=== PATIENT | male | born 1935 | race Caucasian/White ===

== ENCOUNTER → 2016-11-14 | Outpatient (CLI) | payer MEDICARE ==
[~2016-11-14] MED LIST: AMARYL 2MG TABLE2 MG PO; ASPIRIN325 M1 PO; CELEBREX 200MG200 MG PO; COLCHICINE0.6 MG PO; COREG25 MG PO; COUMADIN4 MG PO; COUMADIN6 MG PO; DILAUDID2 MG PO; IMDUR 60MG. TAB60 MG PO; INSULIN GL100 UNITS/ SC; LANOXIN0.125 MG PO; LASIX40 MG PO; LIPITOR20 M1 PO; LOPID 600MG TA600 MG PO; LORTAB 5/500 501 TAB PO; MICARDIS HCT 121 TAB PO; NEURONTIN 300M300 MG PO; NOVOLOG MIX 70/10 M1 SC; NOVOLOG MIX 70/33 ML SC; OMEPRAZOLE20 MG PO; STERAPRED DS10 MG PO
[2016-11-14 17:21] LABS: BUN 34 mg/dL (7-18)
[2016-11-14 17:22] LABS: GFR (ESTIMATED) 49 ML/MIN (>60)
== END ==
LOC: LAB 16:17
PROVIDERS: Internal Medicine
DX: E11.42 Type 2 diabetes mellitus with diabetic polyneuropathy (principal); E11.59 Type 2 diabetes mellitus with other circulatory complications; I50.22 Chronic systolic (congestive) heart failure; I25.10 Atherosclerotic heart disease of native coronary artery without angina pectoris; I25.2 Old myocardial infarction; I48.0 Paroxysmal atrial fibrillation

== ENCOUNTER → 2016-12-02 | Outpatient (CLI) | payer MEDICARE | LOC: LAB 16:22 | DX: I48.2 Chronic atrial fibrillation (principal); Z79.01 Long term (current) use of anticoagulants; Z51.81 Encounter for therapeutic drug level monitoring ==

== ENCOUNTER 2017-07-14 16:11 | Emergency (ER) | payer MEDICARE, MEDICAID ==
[~2017-07-14] VITALS: Ht 198.1 cm; Wt 90.7 kg
[2017-07-14 16:44] LABS: HEMOGLOBIN 11.2 g/dL (14.1-18.0); LYMPH # 1.5 K/mm3 (0.7-4.5); LYMPH % 27.9 % (10-50)
--- NOTE | 2017-07-14 16:46 | Emergency Room Report ---
History of Present Illness Time Seen by MD Broussard Presenting Problem in Triage Pt arrived:Walked Presenting Problem:PT SENT BY DR PRE[facility] FOR EVAL TO RULE OUT BLOOD CLOTS IN LEG. 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 N Clinical Suspician of Infection? N Mental Status: 1 - Regular (Normal Baseline) Sepsis Risk:Low Sepsis Risk Have you (or family members/close friends) recently traveled outside the [place]? N If Yes, where/when: Have you had exposure to infectious disease within the past month? TB? Other? Specify: She states she fell and injured his leg 2 weeks ago. States he is started on antibiotics on Monday he takes every 8 hours he doesn't know an antibiotic it is. 8 she's had some bilateral lower extremity swelling and redness in his RIGHT leg he states the redness in his RIGHT leg is improved since she's been on the antibiotic. She has chronic shortness of breath no new shortness of breath denies any chest pain denies any fevers or chills or nausea or vomiting. States he has a lot of pain and pressure in his knee when he tries to ambulate, this is gotten worse over the past day and that he is not able to bear weight on it due to pain in the knee. He states he has had a knot on his anterior knee just beneath the knee For about a year and a half but the whole knee is swollen more now. ALLERGIES Coded Allergies: No Known Drug Allergies (NKDA) (07/14/17) Uncoded Allergies: INGREDIENT: NO KNOWN - NO KNOWN DRUG ALLERGY (03/01/10) Home Medications Active Scripts Colchicine (Colchicine 0.6MG) 0.6 MG PO BID #10 TAB Prov: 10/28/12 Acetaminophen W/ Hydrocodone (Lortab 5/500) 1 TAB PO Q6HP PRN BREAKTHROUGH MOD TO SEV PAIN #10 TAB Prov: 10/15/13 Omeprazole (Omeprazole 20MG) 20 MG PO DAILY #30 CAP Prov: 10/15/13 Reported Medications Aspirin 325 MG PO DAILY Gemfibrozil (Lopid 600MG Tablet (Generic)) 600 MG PO DAILY ISOSORBIDE MONONITRATE (Isosorbide Mononitrate ER) 120 MG PO DAILY Furosemide (Lasix) 40 MG PO BID Gabapentin (Neurontin 300MG) 300 MG PO TID Atorvastatin Calcium (Lipitor) 20 MG PO DAILY Carvedilol (Coreg 25MG) 25 MG PO DAILY DIGOXIN (Digox) 0.125 MG PO DAILY Warfarin Sodium (Coumadin) 6 MG PO MoTuWeThFrSa Warfarin Sodium (Coumadin) 4 MG PO SUN INSULIN GLARGINE (Lantus 3ML Solostar Pen) 40 UNITS SC DAILY Glimepiride (Amaryl 2MG Tablet) 4 MG PO DAILY INSULIN ASPART PROTAM & ASPART (Novolog Mix 70-30 Vial) 50 UNITS SC BID Celecoxib (Celebrex 200MG) 200 MG PO DAILY History Medical History General Angina: No CT: Yes Hypertension? Yes Hyperlipidemia? Yes CHF? No COPD? No Asthma? No Hernia? No CVA? No Seizures? No Diabetes? Yes Insulin Dependent: No Insulin Pump: No Home FSBS? Yes UTI? Yes Stones? Yes GB Disease: No Hepatitis? No Cataracts? No Glaucoma? No MRSA? No TB? No Cancer? No Immunization Hx Ped.Immunizations UTD Yes DT/Tetanus NOT SURE Flu LAST YEAR Pneumonia 1-4 YRS Surgical Hx Previous Surgery?Y R KNEE VASECTOMY KIDNEY STONE REMOVAL Family History Family Hx Diabetes Yes CAD No Hypertension Yes Hyperlipidemia No Cancer No TB No Social History Smoking Hx Smoker: Never Smoker Tobacco: No Are you/the child exposed to second-hand smoke: No Alcohol Alcohol: No Review of Systems All Other Systems Reviewed and Negative Physical Exam Vital Signs Vital Signs Date Time Temp Pulse Resp B/P Pulse O2 O2 Flow FiO2 Ox Delivery Rate 07/14 1621 98.3 82 18 98 General Appearance: Nontoxic Head: Normocephalic, without obvious abnormality, atraumatic. Eyes: conjunctiva/corneas clear ENT: Mucous membranes moist. Neck: No jugular venous distention. Cardiac: regular rate and rhythm Lungs: Clear to auscultation bilaterally Abdomen: Nontender, Nondistended, positive bowel sounds, no rebound : No CVA tenderness Extremities: + Bilateral lower extremity pitting edema. RIGHT lower extremity has erythema has an open sore on the anterior tib-fib area RIGHT knee has an effusion there is some pretibial bursitis as well there is no erythema or warmth of the joint. He was to be a large effusion in the RIGHT knee joint. There is no cellulitis over this area but the lower leg is erythematous with open Sores and wounds Musculoskeletal: No chest wall tenderness Skin: No rashes or lesions to exposed skin, except for RIGHT lower extremity has a cellulitic appearance, patient states is improving on his antibiotics. Neurologic: Alert. No gross focal deficits Psychiatric: Normal affect (Carol CANTOR, Moncho) General Appearance normal appearance Respiratory Status No: respiratory distress. Cardiovascular normal exam Neurologic alert Medical Decision Making LABS/Meds/Orders Pt receiving controlled substance in ED? No Comment 448pm patient getting US now in ER. US per staff is negative for DVT 515 call out to orthopedics for knee effusion, Dr Goodwin 543 have lindsey Goodwin, no ortho call today or tommorrow, lindsey hospitalist here, cannot take patient without orthopedic call, call out to RIGHT tib-fib x-ray per my read I don't note any fracture RIGHT knee film per my read I don't note any fracture Chest x-ray per my read on it scarring I don't note any acute infiltrate Results/Orders Laboratory Tests 07/14/17 1635: Lactic Acid 1.0 07/14/17 1635: Troponin I < 0.02, B-Natriuretic Peptide 215 H, PT 25.4 H, INR 2.33 H 07/14/17 1635: Sodium 140, Potassium 4.1, Chloride 104, Carbon Dioxide 32, BUN 36 H, Creatinine 1.6 H, Estimated Creat Clear 47 L, Estimated GFR (MDRD) 42, Glucose 153 H, Calcium 8.7, Total Bilirubin 0.6, AST 39 H, ALT 36, Alkaline Phosphatase 91, Total Protein 7.6, Albumin 3.5, Globulin 4.1 H, Albumin/ Globulin Ratio 0.9 L, APTT 32.2, WBC 5.4, RBC 3.56 L, Hgb 11.2 L, Hct 33.2 L , MCV 93.1, RDW 15.5, Plt Count 145, MPV 9.9, Gran % 60.6, Gran # 3.3, Lymphocytes % 27.9, Monocytes % 5.2, Eosinophils % 5.3, Basophils % 1.0, Lymphocytes # 1.5, Monocytes # 0.3, Eosinophils # 0.3, Basophils # 0.1, PUBS MCHC 33.9, MCH 31.5 H Current Medication Orders Sig/Rg Start time Last Medication Dose Route Stop Time Status Admin Sodium Chloride 10 ML PRN PRN 07/14 1630 AC IV 07/15 1628 Orders Procedure Date/time Status CULTURE, BLOOD 07/14 1647 Active TROPONIN I 07/14 1647 Complete PARTIAL THROMBOPLASTIN TIME 07/14 1647 Complete LACTIC ACID 07/14 1647 Complete BRAIN NATRIURETIC PEPTIDE 07/14 1647 Complete PROTHROMBIN TIME 07/14 1631 Complete IV SALINE LOCK 07/14 1630 Active CBC WITH AUTO DIFF 07/14 1630 Complete CHEM 12 PROFILE 07/14 1630 Complete PELVIS AP ONLY 07/14 1627 Active LOWER LEG-RT 07/14 162 Active KNEE-3 VIEWS-RT 07/14 162 Active CHEST-PORTABLE 07/14 162 Active VENOUS LOWER EXT [place] 07/14 162 Complete Departure Departure Time of Disposition 1755 Disposition DC/XFER from ER to [facility] Clinical Impression Primary Impression: Effusion, right knee Secondary Impressions: Cellulitis of right leg Leg hematoma Qualifiers: Encounter type: initial encounter Laterality: right Qualified Code: S80.11XA - Contusion of right lower leg, initial encounter Condition STABLE Referrals Chapito CANTOR,Hossein Campos (Family) ED Critical Care Critical Care No If Critical Care minutes are documented, the time involved in the performance of seperately reportable procedures was not counted toward critical care time documented. I directly delivered medical care to this critically ill and/or injured patient. Timely evaluation and treatment was necessary to address the significant organ system(s) dysfunction present in this patient. at 1757
--- NOTE | 2017-07-14 17:13 | CARDIOVASCULAR REPORT ---
"Venous Exam Indications: 729.5 Pain in limb. IMPRESSIONS 1. There is no evidence of significant Reflux. 2. No evidence of deep or superficial vein thrombosis involving the right lower extremity and left lower extremity History: Bilateral lower extremity pain. Swelling of the right lower extremity. Ulcers of the right leg. PMH: Deep vein thrombosis. Risk factors: Hypertension. Recent trauma. Renal disease. Patient had a fall x 2 weeks ago with bruising and ulceration to the right lower extremity. Medications: Warfarin (Coumadin), 4 mg daily. Complete lower extremity venous duplex evaluation. Doppler flow study including spectral analysis, color and limon scale imaging. Location: Emergency department. Patient status: Emergency department. CRITICAL FINDINGS - Reported to: [facility] - Read back and verified. - 07/14/17 - 17:00 - RLE negative for DVT or SVT Tables: Venous flow and imaging: + +-------+ + |Location |Overall|Flow properties | + +-------+ + |Right common femoral |Patent |Normal phasicity; spontaneous; | | | |normal augmentation; compressible| + +-------+ + |Right saphenofemoral junction|Patent |Compressible | + +-------+ + |Right profunda femoral |Patent |Compressible | + +-------+ + |Right femoral |Patent |Normal phasicity; spontaneous; | | | |normal augmentation; | | | |compressible; no reflux | + +-------+ + |Right greater saphenous |Patent |Normal phasicity; spontaneous; | | | |normal augmentation; compressible| + +-------+ + |Right popliteal |Patent |Normal phasicity; spontaneous; | | | |normal augmentation; compressible| + +-------+ + |Right posterior tibial |Patent |Compressible | + +-------+ + |Right peroneal |Patent |Compressible | + +-------+ + |Right gastrocnemius |Patent |Compressible | + +-------+ + |Right soleal |Patent |Compressible | + +-------+ + |Left common femoral |Patent |Normal phasicity; spontaneous; | | | |normal augmentation; compressible| + +-------+ + |Left saphenofemoral junction |Patent |Compressible | + +-------+ + |Left profunda femoral |Patent |Compressible | + +-------+ + |Left femoral |Patent |Normal phasicity; spontaneous; | | | |normal augmentation; compressible| + +-------+ + |Left greater saphenous |Patent |Normal phasicity; spontaneous; | | | |normal augmentation; compressible| + +-------+ + |Left popliteal |Patent |Normal phasicity; spontaneous; | | | |normal augmentation; compressible| + +-------+ + |Left posterior tibial |Patent |Compressible | + +-------+ + |Left peroneal |Patent |Compressible | + +-------+ + |Left gastrocnemius |Patent |Compressible | + +-------+ + |Left soleal |Patent |Compressible | + +-------+ + (Report amended ) Electronically signed by: [employer] [id number]"
--- NOTE | 2017-07-14 18:04 | RADIOLOGY REPORT PS360 ---
LOWER LEG-RT HISTORY: Pain and swelling PAIN ORDERING PHYSICIAN: Moncho Medina MD PATIENT AGE: 82 years COMPARISON: None FINDINGS: No fracture or dislocation or other significant bony pathology evident. There is generalized vascular calcification. IMPRESSION: Vascular calcification otherwise negative right hip.
--- NOTE | 2017-07-14 18:05 | RADIOLOGY REPORT PS360 ---
KNEE-3 VIEWS-RT HISTORY: Pain and swelling PAIN ORDERING PHYSICIAN: Moncho Medina MD PATIENT AGE: 82 years COMPARISON: None FINDINGS: No fracture or dislocation. No lytic or blastic change. Normal mineralization. Mild osteoarthritic change at the patellofemoral joint with cortical irregularity in the posterior aspect of the patella. There is prominent soft tissue swelling in the prepatellar region inferiorly. There is generalized vascular calcification. Suprapatellar effusion is also noted. IMPRESSION: 1. 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 Prepatellar bursitis
--- NOTE | 2017-07-14 18:06 | RADIOLOGY REPORT PS360 ---
PELVIS AP ONLY HISTORY: Pain PAIN ORDERING PHYSICIAN: Moncho Medina MD PATIENT AGE: 82 years COMPARISON: None FINDINGS: There are mild osteoarthritic changes of the right hip. No fracture or dislocation. No lytic or blastic change. Prominent bridging osteophytes are present on the left at L4-L5. There is generalized vascular calcification IMPRESSION: Osteoarthritis of the right hip
--- NOTE | 2017-07-14 18:07 | RADIOLOGY REPORT PS360 ---
CHEST-PORTABLE HISTORY: PAIN ORDERING PHYSICIAN: Moncho Medina MD PATIENT AGE: 82 years COMPARISON: 04/11/2017 FINDINGS: The cardiomediastinal silhouette and pulmonary vascularity are within normal limits. The lungs are clear without infiltrates, suspicious nodules, or pleural effusions. No acute bony abnormalities. Atherosclerotic calcification involves the aortic knob IMPRESSION: No change with no acute finding
[2017-07-14 18:45] VITALS: BP 145/83
== END 2017-07-14 18:46 | disposition short-term general hospital (02) ==
LOC: ER 16:11
PROVIDERS: Emergency Medicine
DX: M25.461 Effusion, right knee (principal); L03.115 Cellulitis of right lower limb; S80.11XA Contusion of right lower leg, initial encounter; W01.0XXA Fall on same level from slipping, tripping and stumbling without subsequent striking against object, initial encounter; R06.02 Shortness of breath; Z79.82 Long term (current) use of aspirin; Z79.01 Long term (current) use of anticoagulants; E11.9 Type 2 diabetes mellitus without complications; Z79.4 Long term (current) use of insulin; I10 Essential (primary) hypertension; E78.5 Hyperlipidemia, unspecified

== ENCOUNTER 2017-08-05 23:52 | Inpatient (IN) | payer MEDICARE, MEDICAID ==
[~2017-08-05] VITALS: Ht 193 cm; Wt 102.2 kg
[2017-08-05 23:58] VITALS: BP 148/91
[2017-08-06] VITALS (7 sets, daily range): BP systolic 113–169; BP diastolic 68–96
--- OUTSIDE RECORDS SUMMARY | 2017-08-06 00:12 | External Medical Summary Rpt | CCD ---
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 Name Role Phone Naeem Cummings III, MD, Naeem Chen III, MD Purpose Continuity of Care Document - 10-15-2013 through 2016 Problems Code Diagnosis DOS Provider Status 250.01 250.01 DIAB 10-15-2013 [facility], TYPE Hospital I [JUVENILE TYPE], NOT UNCNTRLD 274.00 274.00 10-15-2013 [facility] 401.9 401.9 10-15-2013 [facility] Allergies, Adverse Reactions, Alerts Type Allergy to substance Adverse Reaction to Substance Substance Reaction Severity INGREDIENT: NO KNOWN Unknown Unknown - NO KNOWN DRUG ALLERGY Medications Na ND Rx Da Fi Fi Am Da Di Ph RX Ph St me C No te ll ll ou ys ag ar # ys at rm s nt no ma ic us Or Da si cy ia de te s n re d AP 00 12 0 No AP 40 -3 /H 60 1- Lo YD 36 20 ng RO 56 13 er CO 2 DO Ac NE ti ve 32 5 MG -5 MG SO 00 12 0 No HOLLAND 00 -3 -M 90 1- Lo ED 04 20 ng RO 72 13 er L 2 12 Ac 5 ti MG ve AL Vital Signs 10-15-2013 12:29 Name Value Interpretat Reference Comment ion Range BP 64 mm[Hg] Diastolic BP Systolic 128 mm[Hg] Heart 61 /min Rate/Pulse O2% 97 % Respiratory 20 /min Rate 10-15-2013 11:34 Name Value Interpretat Reference Comment ion Range BP 52 mm[Hg] Diastolic BP Systolic 110 mm[Hg] Heart 68 /min Rate/Pulse O2% 98 % Respiratory 20 /min Rate Results Labs Lab Lab Date Result Refere Interp Status Commen Order Detail nces retati t Range on cCP IgG Ser-aCnc (07-20-2017 02:59) cCP IgG < 5.0 <5.0 complet 017 U/mL ed Ser-aCn 02:59 c Rheumatoid fact SerPl-aCnc (07-20-2017 02:59) Rheumat < 10 <14 complet oid 017 IU/mL ed fact 02:59 SerPl-a Cnc Osmolality Ur (07-17-2017 10:50) Osmolal 392 300-900 complet ity Ur 017 mOsm/kg ed 10:50 Calcium Ur-mCnc (07-17-2017 10:49) Calcium 2.5 complet 017 mg/dL ed Ur-mCnc 10:49 Sodium Ur-sCnc (07-17-2017 09:04) Sodium 33 complet Ur-sCnc 017 mmol/L ed 09:04 Potassium Ur-sCnc (07-17-2017 09:04) Potassi 52 complet um 017 mmol/L ed Ur-sCnc 09:04 Creat Ur-mCnc (07-17-2017 09:04) Creat 141 complet Ur-mCnc 017 mg/dL ed 09:04 Chloride Ur-sCnc (07-17-2017 09:04) Chlorid 25 complet e 017 mmol/L ed Ur-sCnc 09:04 Phosphate SerPl-mCnc (07-17-2017 02:25) Phospha 2.9 2.5-4.5 complet te 017 mg/dL ed SerPl-m 02:25 Cnc Magnesium SerPl-mCnc (07-17-2017 02:25) Magnesi 2.4 1.9-2.4 complet um 017 mg/dL ed SerPl-m 02:25 Cnc Hgb A1c MFr Bld (07-17-2017 02:25) Hgb A1c 8.0 % 4.7-6.0 complet MFr 017 ed Bld 02:25 Urate SerPl-mCnc (07-16-2017 18:30) Urate 7.4 3.7-8.0 complet SerPl-m 017 mg/dL ed Cnc 18:30 Vancomycin SerPl-mCnc (07-16-2017 04:34) Vancomy 7.4 0-40.0 complet nico 017 ug/mL ed SerPl-m 04:34 Cnc Phosphate SerPl-mCnc (07-16-2017 04:34) Phospha 2.0 2.5-4.5 complet te 017 mg/dL ed SerPl-m 04:34 Cnc Magnesium SerPl-mCnc (07-16-2017 04:34) Magnesi 1.8 1.9-2.4 complet um 017 mg/dL ed SerPl-m 04:34 Cnc Bacteria Fld Aerobe Cult (07-15-2017 06:09) Bacteri [id number] complet a XXX 017 06 No ed Anaerob 06:09 growth e+Aerob (qualif e Cult ier value) SCT NG4 NO GROWTH DAY 4. L CC XXX NOTAP complet VC-aCnc 017 NOT ed 06:09 APPLICA BLE L Crystals Fld Micro (07-15-2017 06:08) Crystal NOCRY complet s Fld 017 NO ed Micro 06:08 CRYSTAL S SEEN L Lactate Bld-sCnc (07-14-2017 23:00) Lactate 1.4 complet 017 mmol/L ed Bld-sCn 23:00 c Bacteria XXX Anaerobe+Aerobe Cult (07-14-2017 22:06) Bacteri [id number] complet a XXX 017 06 No ed Anaerob 22:06 growth e+Aerob (qualif e Cult ier value) SCT NGB6 NO GROWTH DAY 5. L Bacteria XXX Anaerobe+Aerobe Cult (07-14-2017 21:59) Bacteri [id number] complet a XXX 017 06 No ed Anaerob 21:59 growth e+Aerob (qualif e Cult ier value) SCT NGB6 NO GROWTH DAY 5. L ESR Bld Qn (07-14-2017 21:48) ESR Bld 46 0-11 complet Qn 017 mm/hr ed 21:48 CRP SerPl-mCnc (07-14-2017 21:48) CRP 09-29-2 1.1 0-0.9 complet SerPl-m 017 mg/dL ed Cnc 21:48 BASIC METABOLIC PANEL (10-15-2013 11:09) Glucose 266 74-106 complet 013 mg/dL ed Bld-mCn 11:09 c BUN 21 7-18 complet Bld-mCn 013 mg/dL ed c 11:09 Creat 1.4 0.8-1.3 complet SerPl-m 013 mg/dL ed Cnc 11:09 Creat 76 50-200 complet Cl 013 ML/MIN ed predict 11:09 ed SerPl C-G-vRa te GFR/BSA 49 Greater complet .pred 013 ML/MIN than ed SerPl 11:09 60 Schwart z-vRate Sodium 139 136-145 complet SerPl-s 013 mmoL/L ed Cnc 11:09 Potassi 4.4 3.5-5.1 complet um 013 mmoL/L ed SerPl-s 11:09 Cnc Chlorid 102 98-107 complet e 013 mmoL/L ed SerPl-s 11:09 Cnc CO2 29 21.0-32 complet SerPl-s 013 mmoL/L .0 ed Cnc 11:09 Calcium 8.2 8.5-10. complet 013 mg/dL 1 ed SerPl-m 11:09 Cnc URIC ACID (10-15-2013 11:09) URIC 8.5 2.6-7.2 complet ACID 013 mg/dL ed 11:09 PROTIME/INR (10-15-2013 11:09) PROTHRO 28.7 9.9-11. complet MBIN 013 SECONDS 6 ed TIME 11:09 INR Bld 2.66 0.9-1.1 complet 013 UNK ed 11:09 Encounters Encounter Start End Date Code Location Performer Type Date Emergency JULIANE Chen (ER) 3 10:41 3 12:30 [facility] Naeem Campos
--- OUTSIDE RECORDS SUMMARY | 2017-08-06 00:12 | External Medical Summary Rpt | CCD ---
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 Name Role Phone Naeem Cummings III, MD, Naeem Chen III, MD Purpose Continuity of Care Document - 10-15-2013 through 2016 Problems Code Diagnosis DOS Provider Status 250.01 250.01 DIAB 10-15-2013 [facility], TYPE Hospital I [JUVENILE TYPE], NOT UNCNTRLD 274.00 274.00 10-15-2013 [facility] 401.9 401.9 10-15-2013 [facility] Allergies, Adverse Reactions, Alerts Type Allergy [...] Bacteria Fld Aerobe Cult (07-15-2017 06:09) Bacteri [id number] complet a XXX 017 06 No ed [...] Bacteria XXX Anaerobe+Aerobe Cult (07-14-2017 22:06) Bacteri [id number] complet a XXX 017 06 No ed Anaerob 22:06 growth e+Aerob (qualif e Cult ier value) SCT NGB6 NO GROWTH DAY 5. L Bacteria XXX Anaerobe+Aerobe Cult (07-14-2017 21:59) Bacteri [id number] complet a XXX 017 06 No ed [...] JULIANE Chen (ER) 3 10:41 3 12:30 [facility] Naeem Campos
--- OUTSIDE RECORDS SUMMARY | 2017-08-06 00:13 | External Medical Summary Rpt | CCD ---
Author Author JONAH Address Unknown Phone [email or web address] Purpose Continuity of Care Document - through 2016
--- OUTSIDE RECORDS SUMMARY | 2017-08-06 00:13 | External Medical Summary Rpt | CCD ---
Author Author JONAH Address Unknown Phone [email or web address] Purpose Continuity of Care Document - through 2016
--- OUTSIDE RECORDS SUMMARY | 2017-08-06 00:14 | External Medical Summary Rpt ---
Author Author JONAH Espinoza, [employer] Address Unknown Phone Unavailable Results Lactate [Moles/volume] in Blood Observa Value Referen Units Interpr Notes Date tion ce etation Range Lactate 0.4 - 2.0 mmol/L Normal No Sep 29 [Moles/vo informati 2017 4:35 lume] in on in PM Blood source data Activated partial thrombplastin time (aPTT) in Platelet poor plasma by Coagulation assay Observa Value Referen Units Interpr Notes Date tion ce etation Range Activated 23.6 - SECONDS Normal No Sep 29 partial 34.0 informati 2017 4:35 thrombpla on in PM stin time source (aPTT) data in Platelet poor plasma by Coagulati on assay Comprehensive metabolic 2000 panel in Serum or Plasma Observa Value Referen Units Interpr Notes Date tion ce etation Range Albumin/G 1.1 - 1.8 No Low No Sep 29 lobulin informati informati 2017 4:35 [Mass on in on in PM ratio] in source source Serum or data data Plasma Albumin 3.4 - 5.0 gm/dL Normal No Sep 29 [Mass/vol informati 2017 4:35 ume] in on in PM Serum or source Plasma data Alkaline 46 - 116 U/L Normal No Sep 29 phosphata informati 2017 4:35 se on in PM [Enzymati source c data activity/ volume] in Serum or Plasma Bilirubin 0.2 - 1.0 mg/dL Normal No Sep 29 .total informati 2017 4:35 [Mass/vol on in PM ume] in source Serum or data Plasma Urea 7 - 18 mg/dL High No Sep 29 nitrogen informati 2017 4:35 [Mass/vol on in PM ume] in source Serum or data Plasma Calcium 8.5 - mg/dL Normal No Sep 29 [Mass/vol 10.1 informati 2017 4:35 ume] in on in PM Serum or source Plasma data Chloride 98 - 107 mmoL/L Normal No Sep 29 [Moles/vo informati 2017 4:35 lume] in on in PM Serum or source Plasma data Carbon 21.0 - mmoL/L Normal No Sep dioxide, 32.0 informati 2016 4:35 total on in PM [Moles/vo source lume] in data Serum or Plasma Creatinin 0.70 - mg/dL High No Sep 29 e 1.30 informati 2016 4:35 [Mass/vol on in PM ume] in source Serum or data Plasma Creatinin 50 - 200 ML/MIN Low No Sep 29 e renal informati 2016 4:35 clearance on in PM source predicted data by Cockcroft -Gault formula Estimated >60 ML/MIN No REFERENCE Sep 29 informati RANGE: 2017 4:35 glomerula on in >60 PM r source ML/MIN/1. filtratio data 73 SQUARE n rate METERSIf (GF this patient is -A merican, then multiply theresult by 1.210. Globulin 1.3 - 3.2 gm/dL High No Sep 29 [Mass/vol informati 2016 4:35 ume] in on in PM Serum source data Glucose 74 - 106 mg/dL High No Sep 29 [Mass/vol informati 2016 4:35 ume] in on in PM Serum or source Plasma data Potassium 3.5 - 5.1 mmoL/L Normal No Sep 29 informati 2016 4:35 [Moles/vo on in PM lume] in source Serum or data Plasma Sodium 136 - 145 mmoL/L Normal No Sep 29 [Moles/vo informati 2017 4:35 lume] in on in PM Serum or source Plasma data Aspartate 15 - 37 U/L High No Sep 29 informati 2016 4:35 aminotran on in PM sferase source [Enzymati data c activity/ volume] in Serum or Plasma Alanine 12 - 78 U/L Normal No Sep 29 aminotran informati 2016 4:35 sferase on in PM [Enzymati source c data activity/ volume] in Serum or Plasma Protein 6.4 - 8.2 gm/dL Normal No Sep 29 [Mass/vol informati 2016 4:35 ume] in on in PM Serum or source Plasma data INR in Blood by Coagulation assay Observa Value Referen Units Interpr Notes Date tion ce etation Range IS PATIENT ON ANTICOAGULANTS? Y LIST ANTICOAGULANTS: COUMADIN PTT RESULTS MUST BE CALLED IF PT ON HEPARIN!!! Y INR in 0.9 - 1.1 No High INDICATIO Sep 29 Blood by informati N 2016 4:35 Coagulati on in PM on assay source INR data RANGETHER APY FOR DVT, PE, ATRIAL FIB; 2.0 - 3.0PROPHY LAXIS FOR VTETHERAP Y FOR MECHANICA L HEART 2.5 - 3.5VALVE; PREVENTIO N OF SYSTEMICE MBOLISM SECONDARY TO AMI Prothromb 9.4 - SECONDS High No Sep 29 in time 11.8 informati 2016 4:35 (PT) in on in PM Platelet source poor data plasma by Coagulati on assay CBC W Auto Differential panel in Blood Observa Value Referen Units Interpr Notes Date tion ce etation Range Basophils 0 - 0.2 K/MM3 Normal No Sep 29 informati 2017 4:35 [#/volume on in PM ] in source Blood by data Automated count Basophils 0.1 - 2.0 % Normal No Sep 29 /100 informati 2017 4:35 leukocyte on in PM s in source Blood by data Automated count Eosinophi 0.0 - 0.4 K/mm3 Normal No Sep 29 ls informati 2016 4:35 [#/volume on in PM ] in source Blood by data Automated count Eosinophi 0.1 - % Normal No Sep 29 ls/100 12.0 informati 2016 4:35 leukocyte on in PM s in source Blood by data Automated count Granulocy 1.3 - 8.0 K/mm3 Normal No Sep 29 juan jose informati 2017 4:35 [#/volume on in PM ] in source Blood by data Automated count Granulocy 37.0 - % Normal No Sep 29 juan jose/100 80.0 informati 2016 4:35 leukocyte on in PM s in source Blood by data Automated count Hematocri 42.0 - % Low No Sep 29 t [Volume 52.0 informati 2017 4:35 on in PM Fraction] source of Blood data Hemoglobi 14.1 - g/dL Low No Sep 29 n 18.0 informati 2016 4:35 [Mass/vol on in PM ume] in source Blood data Lymphocyt 0.7 - 4.5 K/mm3 Normal No Sep 29 es informati 2016 4:35 [#/volume on in PM ] in source Unspecifi data ed specimen by Automated count Lymphocyt 10 - 50 % Normal No Sep 29 es informati 2017 4:35 [#/volume on in PM ] in source Unspecifi data ed specimen by Automated count Erythrocy 27 - 31.2 pg High No Sep 29 te mean informati 2017 4:35 corpuscul on in PM ar source hemoglobi data n [Entitic mass] Erythrocy 31.8 - g/dl Normal No Sep 29 te mean 35.4 informati 2017 4:35 corpuscul on in PM ar source hemoglobi data n concentra tion [Mass/vol ume] by Automated count Erythrocy 82.2 - fl Normal No Sep 29 te mean 97.8 informati 2017 4:35 corpuscul on in PM ar volume source [Entitic data volume] by Automated count Monocytes 0.1 - 1.0 K/mm3 Normal No Sep 29 informati 2016 4:35 [#/volume on in PM ] in source Blood by data Automated count Monocytes 1.7 - 9.3 % Normal No Sep 29 /100 informati 2017 4:35 leukocyte on in PM s in source Blood by data Automated count Platelet 7.4 - fl Normal No Sep 29 mean 10.4 informati 2017 4:35 volume on in PM [Entitic source volume] data in Blood by Automated count Platelets 142 - 424 K/mm3 Normal No Sep 29 informati 2017 4:35 [#/volume on in PM ] in source Blood data Erythrocy 4.6 - 6.2 M/mm3 Low No Sep 29 juan jose informati 2017 4:35 [#/volume on in PM ] in source Amniotic data fluid Erythrocy 11.5 - % Normal No Sep 29 te 17.5 informati 2016 4:35 distribut on in PM ion width source [Entitic data volume] by Automated count Leukocyte 4.8 - K/MM3 Normal No Sep 29 s 10.8 informati 2016 4:35 [#/volume on in PM ] in source Blood data Glucose [Mass/volume] in Capillary blood by Glucometer Observa Value Referen Units Interpr Notes Date tion ce etation Range Glucose 70 - 110 mg/dl High No May 09 [Mass/vol informati 2016 6:59 ume] in on in AM Capillary source blood by data Glucomete r Glucose [Mass/volume] in Capillary blood by Glucometer Observa Value Referen Units Interpr Notes Date tion ce etation Range Glucose 70 - 110 mg/dl High No Apr 25 [Mass/vol informati 2016 8:58 ume] in on in AM Capillary source blood by data Glucomete r Basic metabolic panel in Blood Observa Value Referen Units Interpr Notes Date tion ce etation Range Urea 7 - 18 mg/dL High No Apr 11 nitrogen informati 2016 4:17 [Mass/vol on in PM ume] in source Serum or data Plasma Calcium 8.5 - mg/dL Normal No Apr 11 [Mass/vol 10.1 informati 2016 4:17 ume] in on in PM Serum or source Plasma data Chloride 98 - 107 mmoL/L Normal No Apr 11 [Moles/vo informati 2016 4:17 lume] in on in PM Serum or source Plasma data Carbon 21.0 - mmoL/L High No Apr 11 dioxide, 32.0 informati 2016 4:17 total on in PM [Moles/vo source lume] in data Serum or Plasma Creatinin 0.70 - mg/dL High No Apr 11 e 1.30 informati 2016 4:17 [Mass/vol on in PM ume] in source Serum or data Plasma Estimated >60 ML/MIN No REFERENCE Apr 11 informati RANGE: 2017 4:17 glomerula on in >60 PM r source ML/MIN/1. filtratio data 73 SQUARE n rate METERSIf (GF this patient is -A merican, then multiply theresult by 1.210. Glucose 74 - 106 mg/dL High No Apr 11 [Mass/vol informati 2016 4:17 ume] in on in PM Serum or source Plasma data Potassium 3.5 - 5.1 mmoL/L High No Apr 11 informati 2016 4:17 [Moles/vo on in PM lume] in source Serum or data Plasma Sodium 136 - 145 mmoL/L Normal No Apr 11 [Moles/vo informati 2016 4:17 lume] in on in PM Serum or source Plasma data CBC W Auto Differential panel in Blood Observa Value Referen Units Interpr Notes Date tion ce etation Range Basophils 0 - 0.2 K/MM3 Normal No Apr 11 informati 2016 4:17 [#/volume on in PM ] in source Blood by data Automated count Basophils 0.1 - 2.0 % Normal No Apr 11 /100 informati 2017 4:17 leukocyte on in PM s in source Blood by data Automated count Eosinophi 0.0 - 0.4 K/mm3 Normal No Apr 11 ls informati 2016 4:17 [#/volume on in PM ] in source Blood by data Automated count Eosinophi 0.1 - % Normal No Apr 11 ls/100 12.0 informati 2016 4:17 leukocyte on in PM s in source Blood by data Automated count Granulocy 1.3 - 8.0 K/mm3 Normal No Apr 11 juan jose informati 2016 4:17 [#/volume on in PM ] in source Blood by data Automated count Granulocy 37.0 - % Normal No Apr 11 juan jose/100 80.0 informati 2016 4:17 leukocyte on in PM s in source Blood by data Automated count Hematocri 42.0 - % Low No Apr 11 t [Volume 52.0 informati 2016 4:17 on in PM Fraction] source of Blood data Hemoglobi 14.1 - g/dL Low No Apr 11 n 18.0 informati 2016 4:17 [Mass/vol on in PM ume] in source Blood data Lymphocyt 0.7 - 4.5 K/mm3 Normal No Apr 11 es informati 2016 4:17 [#/volume on in PM ] in source Unspecifi data ed specimen by Automated count Lymphocyt 10 - 50 % Normal No Apr 11 es informati 2016 4:17 [#/volume on in PM ] in source Unspecifi data ed specimen by Automated count Erythrocy 27 - 31.2 pg High No Apr 11 te mean informati 2016 4:17 corpuscul on in PM ar source hemoglobi data n [Entitic mass] Erythrocy 31.8 - g/dl Normal No Apr 11 te mean 35.4 informati 2016 4:17 corpuscul on in PM ar source hemoglobi data n concentra tion [Mass/vol ume] by Automated count Erythrocy 82.2 - fl Normal No Apr 11 te mean 97.8 informati 2016 4:17 corpuscul on in PM ar volume source [Entitic data volume] by Automated count Monocytes 0.1 - 1.0 K/mm3 Normal No Apr 11 informati 2016 4:17 [#/volume on in PM ] in source Blood by data Automated count Monocytes 1.7 - 9.3 % Normal No Apr 11 /100 informati 2017 4:17 leukocyte on in PM s in source Blood by data Automated count Platelet 7.4 - fl Normal No Apr 11 mean 10.4 informati 2017 4:17 volume on in PM [Entitic source volume] data in Blood by Automated count Platelets 142 - 424 K/mm3 Low No Apr 11 informati 2017 4:17 [#/volume on in PM ] in source Blood data Erythrocy 4.6 - 6.2 M/mm3 Low No Apr 11 juan jose informati 2016 4:17 [#/volume on in PM ] in source Amniotic data fluid Erythrocy 11.5 - % Normal No Apr 11 te 17.5 informati 2016 4:17 distribut on in PM ion width source [Entitic data volume] by Automated count Leukocyte 4.8 - K/MM3 Normal No Apr 11 s 10.8 informati 2016 4:17 [#/volume on in PM ] in source Blood data INR in Blood by Coagulation assay Observa Value Referen Units Interpr Notes Date tion ce etation Range INR in 0.9 - 1.1 No High INDICATIO Apr 11 Blood by informati N 2016 4:17 Coagulati on in PM on assay source INR data RANGETHER APY FOR DVT, PE, ATRIAL FIB; 2.0 - 3.0PROPHY LAXIS FOR VTETHERAP Y FOR MECHANICA L HEART 2.5 - 3.5VALVE; PREVENTIO N OF SYSTEMICE MBOLISM SECONDARY TO AMI Prothromb 9.4 - SECONDS High No Apr 11 in time 11.8 informati 2016 4:17 (PT) in on in PM Platelet source poor data plasma by Coagulati on assay
--- OUTSIDE RECORDS SUMMARY | 2017-08-06 00:14 | External Medical Summary Rpt | CCD ---
Demographics Preferred Language Yakut Marital Status Unknown Gnosticist Affiliation Unknown Race Unknown Ethnic Group Unknown Author Author , LEYDA MCKENZIE Address Unknown Phone Immunization Unable to retrieve immunization data due to connection failure with Immunization Registry. Please try again later.
--- OUTSIDE RECORDS SUMMARY | 2017-08-06 00:14 | External Medical Summary Rpt | CCD ---
Demographics Preferred Language Maori Marital Status Unknown Adventist Affiliation Unknown Race Unknown Ethnic Group Unknown Author Author , LEYDA MCKENZIE Address Unknown Phone Immunization Unable to retrieve immunization data due to connection failure with Immunization Registry. Please try again later.
--- NOTE | 2017-08-06 00:27 | Emergency Room Report ---
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 N Clinical Suspician of Infection? N Mental Status: 1 - Regular (Normal Baseline) Sepsis Risk:Possible Sepsis Risk Have you (or family members/close friends) recently traveled outside the [place]? N If Yes, where/when: Have you had exposure to infectious disease within the past month? N TB? Other? Specify: Source patient, RN notes reviewed, family, old records Exam Limitations no limitations Comment pt with episodes of confusion and dec po intake and dec u/o and chills today - worse tonight- pt with recent visit to for lower ext possible cellulitis Cardiac Chest Pain Chest pain indicative of cardiac No Timing/Duration this evening Severity moderate ALLERGIES Coded Allergies: No Known Allergies (08/06/17) Home Medications Reported Medications Allopurinol 100 MG PO DAILY ASPIRIN (Aspirin 325MG) 325 MG PO DAILY Atorvastatin Calcium (Atorvastatin) 40 MG PO DAILY Carvedilol (Carvedilol 25MG) 25 MG PO BID Colchicine (Colcrys 0.6MG) 0.6 MG PO DAILY DIGOXIN (Digox) 0.125 MG PO DAILY DOCUSATE SODIUM (Docusate Sodium) 100 MG PO BID Furosemide (Furosemide 40MG) 40 MG PO BID Gabapentin (Gabapentin 300MG) 300 MG PO TID Insulin Glargine (Lantus Insulin Vial) 50 UNITS SC BID INSULIN LISPRO (Humalog) 30 UNITS SC TID ISOSORBIDE MONONITRATE (Isosorbide Mononitrate ER) 120 MG PO DAILY Oxycodone 5MG/[id number] (Oxycodone-Acetaminophen 5-325) 1 TAB PO Q4HP PRN PAIN Warfarin Sodium (Warfarin 4MG) 6 MG PO DAILY History Medical History General Angina: No PR: Yes Hypertension? Yes Hyperlipidemia? Yes CHF? No COPD? No Asthma? No Hernia? No CVA? No Seizures? No Diabetes? Yes Insulin Dependent: No Insulin Pump: No Home FSBS? Yes UTI? Yes Stones? Yes GB Disease: No Hepatitis? No Cataracts? No Glaucoma? No MRSA? No TB? No Cancer? No Immunization Hx DT/Tetanus NOT SURE Flu LAST YEAR Pneumonia 1-4 YRS Surgical Hx Previous Surgery?Y R KNEE VASECTOMY KIDNEY STONE REMOVAL Family History Family Hx Diabetes Yes CAD No Hypertension Yes Hyperlipidemia No Cancer No TB No Social History Smoking Hx Smoker: Former Smoker Tobacco: No Alcohol Alcohol: No Drugs none Review of Systems All Other Systems Reviewed and Negative Constitutional denies fever Eyes denies drainage ENT denies: ear pain, epistaxis, throat pain. Respiratory denies cough, denies shortness of breath, denies wheezing Cardiovascular denies chest pain, denies syncope Gastrointestinal denies abdominal pain, denies diarrhea, denies vomiting Genitourinary denies: dysuria, frequency, hesitancy, hematuria. Musculoskeletal denies back pain, denies joint pain, denies joint swelling, denies neck pain Skin denies rash Psychiatric/Neurological see HPI, denies headache, denies seizure, weakness Physical Exam Vital Signs Vital Signs Date Time Temp Pulse Resp B/P Pulse O2 O2 Flow FiO2 Ox Delivery Rate 08/06 0239 73 16 153/73 94 08/06 0109 99.5 79 20 157/80 93 08/05 2358 103.9 95 22 148/91 96 - WBC >12,000 or <4,000 or 10% bands? 2 or more SIRS Criteria Met? B/P:153/73 MAP:110 Creatinine >2.0? UA output<0.5ml/kg/hr for 2 hrs? Platelet count >100,000? Lactate >2.0mmol/1? INR >1.2 or PTT > than 60 sec? Evidence of Organ Dysfunction? Provider documented clinical suspician of infection? N Sepsis Criteria Count: 3 Sepsis Risk: Possible Sepsis Risk General Appearance no apparent distress Eye Exam - bilateral eye PERRL, bilateral eye EOMI Ear, Nose, Throat dry mm Neck limited range of motion Respiratory Status No: respiratory distress. Lung Sounds bilateral: decreased breath sounds. 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 No Results/Orders Laboratory Tests 08/06/17 0115: Urine Color YELLOW, Urine Appearance CLOUDY, Urine pH 8.0, Ur Specific [place] 1.020, Urine Protein 2+ H, Urine Ketones NEGATIVE, Urine Blood 2+ H, Urine Nitrate POSITIVE H, Urine Bilirubin NEGATIVE, Urine Urobilinogen 0.2, Ur Leukocyte Esterase NEGATIVE, Urine RBC 10-20, Urine WBC 10-20, Urine Bacteria 4+ , Urine Glucose NEGATIVE 08/06/1729: Lactic Acid 1.5 08/06/1729: Sodium 138, Potassium 3.6, Chloride 98, Carbon Dioxide 32, BUN 20 H, Creatinine 1.1, Estimated Creat Clear 81, Estimated GFR (MDRD) 64, Glucose 92, Calcium 8.8, Total Bilirubin 1.5 H, AST 38 H, ALT 43, Alkaline Phosphatase 89, Creatine Kinase 37 L, CK-MB (CK-2) Rel Index 1.4, CK and CKMB Interp < 0.5, Troponin I < 0.02, Total Protein 7.3, Albumin 3.1 L, Globulin 4.2 H, Albumin/Globulin Ratio 0.7 L, PT 26.3 H, INR 2.41 H, WBC 16.3 H, RBC 3.84 L, Hgb 11.8 L, Hct 35.7 L, MCV 92.8, RDW 16.1, Plt Count 113 L, MPV 8.9, Gran % 88.5 H, Gran # 14.4 H, Total Counted 100, Lymphocytes % 5.8 L, Monocytes % 5.3, Eosinophils % 0.1, Basophils % 0.2, Neutrophils 82 H, Band Neutrophils 15 H, Lymphocytes (Manual) 2 L, Lymphocytes # 1.0, Monocytes (Manual) 1 L, Monocytes # 0.9, Eosinophils # 0.0, Basophils # 0.0, Toxic Granulation 1+, Platelet Estimate SLIGHT DECREASE, Polychromasia SL., Anisocytosis 1+, Macrocytosis 1+, PUBS MCHC 33.1, MCH 30.7, Digoxin 0.77 L 08/06/17 0002: POC Glucose 104 Current Medication Orders Sig/Rg Start time Last Medication Dose Route Stop Time Status Admin Ertapenem 1 GM ONCE ONE 08/06 0330 AC Sodium Chloride 50 ML IV 08/06 0359 Ondansetron HCl 4 MG ONCE ONE 08/06 0045 DC 08/06 IV 08/06 0046 0035 Ondansetron HCl 0 .STK-MED ONE 08/06 003 DC .ROUTE Sodium Chloride 1,000 ML .STK-MED ONE 08/06 003 DC IV Acetaminophen 650 MG ONCE ONE 08/06 0030 DC 08/06 NH 08/06 003 0020 Sodium Chloride 10 ML PRN PRN 08/06 0030 AC IV 08/07 0028 Sodium Chloride 1,000 ML .Q1H1M 08/06 003 DC 08/06 IV 08/06 0130 0036 Sodium Chloride 10 ML PRN PRN 08/06 0030 AC IV 08/07 0028 Acetaminophen 0 .STK-MED ONE 08/06 0013 DC NH Orders Procedure Date/time Status Decision to admit 08/06 0319 Active CULTURE, URINE 08/06 0115 Active DIGOXIN 08/06 0053 Complete PROTHROMBIN TIME 08/06 0050 Complete ELECTROCARDIOGRAM REQUEST 08/06 003 Active CHEST-PORTABLE 08/06 003 Active IV SALINE LOCK 08/06 003 Active URINARY CATHETER INSERT 08/06 003 Active CULTURE, BLOOD 08/06 003 Active URINALYSIS/COMPLETE 08/06 003 Complete LACTIC ACID 08/06 003 Complete DIFFERENTIAL-WBC 08/06 30 Complete CBC WITH AUTO DIFF 08/06 003 Complete CARDIAC ENZYMES 08/06 003 Complete CHEM 12 PROFILE 08/06 003 Complete FINGERSTICK BLOOD SUGAR 08/06 0002 Complete 12 LEAD EKG-[place] (INITIAL) 08/06 UNK Active 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 ST/Twave chgs XRAY/CT/US XRAY/CT/US XRAY chest XR interpretation by reviewed by me Xray Results normal/NAD Departure Departure Time of Disposition 0308 Disposition Still a Patient Clinical Impression Primary Impression: UTI (urinary tract infection) Qualifiers: Urinary tract infection type: acute cystitis Hematuria presence: without hematuria Qualified Code: N30.00 - Acute cystitis without hematuria Secondary Impressions: IDDM (insulin dependent diabetes mellitus) Condition STABLE Referrals Chapito CANTOR,Hossein Campos (Family) ED [place] [address]
--- NOTE | 2017-08-06 00:27 | Emergency Room Report ---
History of Present Illness Time Seen by [id number] Presenting Problem in Triage Pt arrived:Wheelchair Presenting Problem:C/O CONFUSED TODAY GLUCOSE 78, DAUGHTER REPORTS NO URINARY OUTPUT C/O CHILLS, C/O PAIN TO BACK OF HEAD Onset of symptoms date/time:08/05/17/ or onset unknown for:MEDICAL HX UNKNOWN Treatment Prior to Arrival: DIRECTOR FIELD SERVICES Provided by: Sepsis Risk Assessment: Temp: 103.9 B/P: 148/91 MAP: 110 Pulse: 95 Resp: 22 Recent fever? N Clinical Suspician of Infection? N Mental Status: 1 - Regular (Normal Baseline) Sepsis Risk:Possible Sepsis Risk Have you (or family members/close friends) recently traveled outside the [place]? N If Yes, where/when: Have you had exposure to infectious disease within the past month? N TB? Other? Specify: Source patient, RN notes reviewed, family, old records Exam Limitations no limitations Comment pt with episodes of confusion and dec po intake and dec u/o and chills today - worse tonight- pt with recent visit to for lower ext possible cellulitis Cardiac Chest Pain Chest pain indicative of cardiac No Timing/Duration this evening Severity moderate ALLERGIES Coded Allergies: No Known Allergies (08/06/17) Home Medications Reported Medications Allopurinol 100 MG PO DAILY ASPIRIN (Aspirin 325MG) 325 MG PO DAILY Atorvastatin Calcium (Atorvastatin) 40 MG PO DAILY Carvedilol (Carvedilol 25MG) 25 MG PO BID Colchicine (Colcrys 0.6MG) 0.6 MG PO DAILY DIGOXIN (Digox) 0.125 MG PO DAILY DOCUSATE SODIUM (Docusate Sodium) 100 MG PO BID Furosemide (Furosemide 40MG) 40 MG PO BID Gabapentin (Gabapentin 300MG) 300 MG PO TID Insulin Glargine (Lantus Insulin Vial) 50 UNITS SC BID INSULIN LISPRO (Humalog) 30 UNITS SC TID ISOSORBIDE MONONITRATE (Isosorbide Mononitrate ER) 120 MG PO DAILY Oxycodone 5MG/[id number] (Oxycodone-Acetaminophen 5-325) 1 TAB PO Q4HP PRN PAIN Warfarin Sodium (Warfarin 4MG) 6 MG PO DAILY History Medical History General Angina: No NE: Yes Hypertension? Yes Hyperlipidemia? Yes CHF? No COPD? No Asthma? No Hernia? No CVA? No Seizures? No Diabetes? Yes Insulin Dependent: No Insulin Pump: No Home FSBS? Yes UTI? Yes Stones? Yes GB Disease: No Hepatitis? No Cataracts? No Glaucoma? No MRSA? No TB? No Cancer? No Immunization Hx DT/Tetanus NOT SURE Flu LAST YEAR Pneumonia 1-4 YRS Surgical Hx Previous Surgery?Y R KNEE VASECTOMY KIDNEY STONE REMOVAL Family History Family Hx Diabetes Yes CAD No Hypertension Yes Hyperlipidemia No Cancer No TB No Social History Smoking Hx Smoker: Former Smoker Tobacco: No Alcohol Alcohol: No Drugs none Review of Systems All Other Systems Reviewed and Negative Constitutional denies fever Eyes denies drainage ENT denies: ear pain, epistaxis, throat pain. Respiratory denies cough, denies shortness of breath, denies wheezing Cardiovascular denies chest pain, denies syncope Gastrointestinal denies abdominal pain, denies diarrhea, denies vomiting Genitourinary denies: dysuria, frequency, hesitancy, hematuria. Musculoskeletal denies back pain, denies joint pain, denies joint swelling, denies neck pain Skin denies rash Psychiatric/Neurological see HPI, denies headache, denies seizure, weakness Physical Exam Vital Signs Vital Signs Date Time Temp Pulse Resp B/P Pulse O2 O2 Flow FiO2 Ox Delivery Rate 08/06 0239 73 16 153/73 94 08/06 0109 99.5 79 20 157/80 93 08/05 2358 103.9 95 22 148/91 96 - WBC >12,000 or <4,000 or 10% bands? 2 or more SIRS Criteria Met? B/P:153/73 MAP:110 Creatinine >2.0? UA output<0.5ml/kg/hr for 2 hrs? Platelet count >100,000? Lactate >2.0mmol/1? INR >1.2 or PTT > than 60 sec? Evidence of Organ Dysfunction? Provider documented clinical suspician of infection? N Sepsis Criteria Count: 3 Sepsis Risk: Possible Sepsis Risk General Appearance no apparent distress Eye Exam - bilateral eye PERRL, bilateral eye EOMI Ear, Nose, Throat dry mm Neck limited range of motion Respiratory Status No: respiratory distress. Lung Sounds bilateral: decreased breath sounds. Cardiovascular regular rate/rhythm, systolic murmur Peripheral Pulses Pulses normal Yes Gastrointestinal soft Extremities swelling Strength 3 Lower Ext (R), 4 Upper Ext (L), 4 Upper Ext (R), 4 Lower Ext (L) Neurologic alert, board certified family physician II-XII nml as tested, no motor/sensory deficits Reflexes Reflexes normal No Mental status normal mood/affect Skin intact Medical Decision Making LABS/Meds/Orders Pt receiving controlled substance in ED? No Results/Orders Laboratory Tests 08/06/17 0115: Urine Color YELLOW, Urine Appearance CLOUDY, Urine pH 8.0, Ur Specific [place] 1.020, Urine Protein 2+ H, Urine Ketones NEGATIVE, Urine Blood 2+ H, Urine Nitrate POSITIVE H, Urine Bilirubin NEGATIVE, Urine Urobilinogen 0.2, Ur Leukocyte Esterase NEGATIVE, Urine RBC 10-20, Urine WBC 10-20, Urine Bacteria 4+ , Urine Glucose NEGATIVE 08/06/1729: Lactic Acid 1.5 08/06/1729: Sodium 138, Potassium 3.6, Chloride 98, Carbon Dioxide 32, BUN 20 H, Creatinine 1.1, Estimated Creat Clear 81, Estimated GFR (MDRD) 64, Glucose 92, Calcium 8.8, Total Bilirubin 1.5 H, AST 38 H, ALT 43, Alkaline Phosphatase 89, Creatine Kinase 37 L, CK-MB (CK-2) Rel Index 1.4, CK and CKMB Interp < 0.5, Troponin I < 0.02, Total Protein 7.3, Albumin 3.1 L, Globulin 4.2 H, Albumin/Globulin Ratio 0.7 L, PT 26.3 H, INR 2.41 H, WBC 16.3 H, RBC 3.84 L, Hgb 11.8 L, Hct 35.7 L, MCV 92.8, RDW 16.1, Plt Count 113 L, MPV 8.9, Gran % 88.5 H, Gran # 14.4 H, Total Counted 100, Lymphocytes % 5.8 L, Monocytes % 5.3, Eosinophils % 0.1, Basophils % 0.2, Neutrophils 82 H, Band Neutrophils 15 H, Lymphocytes (Manual) 2 L, Lymphocytes # 1.0, Monocytes (Manual) 1 L, Monocytes # 0.9, Eosinophils # 0.0, Basophils # 0.0, Toxic Granulation 1+, Platelet Estimate SLIGHT DECREASE, Polychromasia SL., Anisocytosis 1+, Macrocytosis 1+, PUBS MCHC 33.1, MCH 30.7, Digoxin 0.77 L 08/06/17 0002: POC Glucose 104 Current Medication Orders Sig/Rg Start time Last Medication Dose Route Stop Time Status Admin Ertapenem 1 GM ONCE ONE 08/06 0330 AC Sodium Chloride 50 ML IV 08/06 0359 Ondansetron HCl 4 MG ONCE ONE 08/06 0045 DC 08/06 IV 08/06 0046 0035 Ondansetron HCl 0 .STK-MED ONE 08/06 003 DC .ROUTE Sodium Chloride 1,000 ML .STK-MED ONE 08/06 003 DC IV Acetaminophen 650 MG ONCE ONE 08/06 0030 DC 08/06 PA 08/06 003 0020 Sodium Chloride 10 ML PRN PRN 08/06 0030 AC IV 08/07 0028 Sodium Chloride 1,000 ML .Q1H1M 08/06 003 DC 08/06 IV 08/06 0130 0036 Sodium Chloride 10 ML PRN PRN 08/06 0030 AC IV 08/07 0028 Acetaminophen 0 .STK-MED ONE 08/06 0013 DC PA Orders Procedure Date/time Status Decision to admit 08/06 0319 Active CULTURE, URINE 08/06 0115 Active DIGOXIN 08/06 0053 Complete PROTHROMBIN TIME 08/06 0050 Complete ELECTROCARDIOGRAM REQUEST 08/06 003 Active CHEST-PORTABLE 08/06 003 Active IV SALINE LOCK 08/06 003 Active URINARY CATHETER INSERT 08/06 003 Active CULTURE, BLOOD 08/06 003 Active URINALYSIS/COMPLETE 08/06 003 Complete LACTIC ACID 08/06 003 Complete DIFFERENTIAL-WBC 08/06 30 Complete CBC WITH AUTO DIFF 08/06 003 Complete CARDIAC ENZYMES 08/06 003 Complete CHEM 12 PROFILE 08/06 003 Complete FINGERSTICK BLOOD SUGAR 08/06 0002 Complete 12 LEAD EKG-CHAPITO (INITIAL) 08/06 UNK Active CM/EKG CM/buyer grain Rhythm Normal Sinus Rhythm EKG compared w/(date of old), non-spec. ST/Twave chgs XRAY/CT/US XRAY/CT/US XRAY chest XR interpretation by reviewed by me Xray Results normal/NAD Departure Departure Time of Disposition 0308 Disposition Still a Patient Clinical Impression Primary Impression: UTI (urinary tract infection) Qualifiers: Urinary tract infection type: acute cystitis Hematuria presence: without hematuria Qualified Code: N30.00 - Acute cystitis without hematuria Secondary Impressions: IDDM (insulin dependent diabetes mellitus) Condition STABLE Referrals Chapito CANTOR,Hossein Campos (Family) ED Critical Care Critical Care No at [id number]
[2017-08-06 00:45] LABS: HEMOGLOBIN 11.8 g/dL (14.1-18.0); LYMPH % 5.8 % (10-50)
[2017-08-06] MEDS ORDERED: ASPIRIN 325MG325 MG PO (00:53)
[2017-08-06] MEDS ORDERED: ALLOPURINOL100 MG PO (00:53)
[2017-08-06] MEDS ORDERED: LIPITOR40 MG PO (00:55)
[2017-08-06] MEDS ORDERED: CARVEDILOL 25MG25 MG PO (00:55)
[2017-08-06] MEDS ORDERED: COLCRYS0.6 M1 PO (00:56)
[2017-08-06] MEDS ORDERED: LANOXIN0.125 MG PO (00:57)
[2017-08-06] MEDS ORDERED: DOCUSATE SOD100 MG PO (00:57)
[2017-08-06] MEDS ORDERED: FUROSEMIDE40 MG PO (00:58)
[2017-08-06] MEDS ORDERED: GABAPENTIN300 MG PO (00:59)
[2017-08-06] MEDS ORDERED: LANTUS INS100 UNITS/ SC (01:00)
[2017-08-06] MEDS ORDERED: HUMALOG100 U/M1 SC (01:01)
[2017-08-06] MEDS ORDERED: ISOSORBIDE MONO60 MG PO (01:02)
[2017-08-06] MEDS ORDERED: PERCOCET 5/3251 EACH PO (01:04)
[2017-08-06] MEDS ORDERED: WARFARIN SODIUM4 MG PO (01:06)
[2017-08-06 01:09] LABS: NEUTROPHILS 82 % (42-76)
[2017-08-06 01:13] LABS: BUN 20 mg/dL (7-18)
[2017-08-06 01:14] LABS: GFR (ESTIMATED) 64 ML/MIN (>60)
[2017-08-06 01:25] LABS: URINE BILIRUBIN - DIPSTICK NEGATIVE (NEG); URINE BLOOD 2+ (NEG)
--- OUTSIDE RECORDS SUMMARY | 2017-08-06 03:26 | External Medical Summary Rpt | CCD ---
Author Author JONAH Address Unknown Phone .[employer] Purpose Continuity of Care Document - through 2016
--- OUTSIDE RECORDS SUMMARY | 2017-08-06 03:26 | External Medical Summary Rpt | CCD ---
Author Author , LEYDA MCKENZIE Address Unknown Phone [email or web address] Immunization Name Date Rout CVX Reac Dose Comm Prov Is Faci e tion ent ider Refu lity Give sed n Infl 10-1 Intr 135 0.5 Hist [facility] No [facility]M uenz 6-20 amus mL oric ART4 ART4 a, 16 cula al 93 93 High r Info rmat Dose ion - Sour ce Unsp ecif ied
--- OUTSIDE RECORDS SUMMARY | 2017-08-06 03:26 | External Medical Summary Rpt | CCD ---
Author Author , JONAH MCKENZIE Address Unknown Phone [email or web address] Care Team Providers Care Tumbling Instructor Name Role Phone Naeem Cummings III, MD, Naeem Chen III, MD Purpose Continuity of Care Document - 10-15-2013 through 2016 Problems Code Diagnosis DOS Provider Status 250.01 250.01 DIAB 10-15-2013 [facility], TYPE Hospital I [JUVENILE TYPE], NOT UNCNTRLD 274.00 274.00 10-15-2013 [facility] 401.9 401.9 10-15-2013 [facility] Allergies, Adverse Reactions, Alerts Type Allergy [...] Order Detail nces retati t Range on Urinalysis with microscopy (08-06-2017 01:15) Urine 08-06-2 10 - 20 O complet leukocy 017 ed juan jose 01:15 wbc/hpf count (number /volume ) Urine 0.2 0.2 NEG complet urobili 017 L ed nogen 01:15 E.U./dL detecti on by test str Urine = 1.020 1.005-1 complet specifi 017 .030 ed c 01:15 gravity measure ment Erythro 08-06- 10-20 0 complet cytes 017 10-20 L ed detecti 01:15 on in rbc/hpf urine sedimen t Urine 2 + NEG complet protein 017 mg/dL ed 01:15 measure ment by automat ed t Urine = 8.0 5.0-8.5 complet pH 017 ed 01:15 Urine POSITIV NEG complet nitrite 017 E ed 01:15 POSITIV detecti E L on by test strip Mucus NEGATIV NEG complet detecti 017 E ed on in 01:15 NEGATIV urine E L sedimen t by lig Urine NEGATIV NEG complet ketones 017 E ed 01:15 NEGATIV detecti E L on by mg/dL automat ed juan jose Glucose = NEG complet ur 017 NEGATIV ed test 01:15 E strip Urine YELLOW YELLOW complet color 017 YELLOW ed 01:15 L Urine 2+ 2+ L NEG complet blood 017 ed detecti 01:15 on Urine NEGATIV NEG complet total 017 E ed bilirub 01:15 NEGATIV in E L detecti on by test Bacteri 08-06- 4+ 4+ L O complet a 017 ed detecti 01:15 on in urine sedimen t by Urine CLOUDY CLEAR complet appeara 017 CLOUDY ed nce 01:15 L determi nation Urinalysis dipstick W Reflex Microscopic panel in Urine (08-06-2017 01:15) Bacteri 08-06-2 4+ O complet a 017 ed [Presen 01:15 ce] in Urine sedimen t by Light microsc opy Erythro 10-22-2 10-20 0 complet cytes 017 ed [Presen 01:15 ce] in Urine sedimen t by Light microsc opy Leukocy --2 10-20 O complet juan jose 017 wbc/hpf ed [#/volu 01:15 me] in Urine Urinalysis dipstick W Reflex Microscopic panel in Urine (08-06-2017 01:15) Appeara 08-06-2 CLOUDY CLEAR complet nce of 017 ed Urine 01:15 Bilirub 08-06-2 NEGATIV NEG complet in 017 E ed [Presen 01:15 ce] in Urine by Test strip Erythro 08-06-2 2+ NEG Abnorma complet cytes 017 l ed [Presen 01:15 ce] in Urine Color 08-06-2 YELLOW YELLOW complet of 017 ed Urine 01:15 Ketones 08-06-2 NEGATIV NEG complet 017 E ed [Presen 01:15 ce] in Urine by Automat ed test strip Mucus 08-06-2 NEGATIV NEG complet [Presen 017 E ed ce] in 01:15 Urine sedimen t by Light microsc opy Nitrite 08-06-2 POSITIV NEG Abnorma complet 017 E l ed [Presen 01:15 ce] in Urine by Test strip Urobili 08-06-2 0.2 NEG complet nogen 017 ed [Presen 01:15 ce] in Urine by Test strip Comprehensive metabolic panel (08-06-2017 00:30) Protein = 7.3 6.4-8.2 complet total 017 gm/dL ed ser/coleen 00:30 s ALT = 43 12-78 complet (SGPT) 017 U/L ed ser/cloeen 00:30 s Serum 08-06-2 = 38 15-37 complet or 017 U/L ed plasma 00:30 asparta te aminotr ansfera Serum = 138 136-145 complet sodium 017 mmoL/L ed measure 00:30 ment Serum = 3.6 3.5-5.1 complet potassi 017 mmoL/L ed um 00:30 measure ment Serum = 92 74-106 complet or 017 mg/dL ed plasma 00:30 glucose measure ment (mas Serum = 4.2 1.3-3.2 complet globuli 017 gm/dL ed n 00:30 measure ment (mass/v olume) Estimat = 64 >60 complet ed 017 ML/MIN ed glomeru 00:30 lar filtrat ion rate (GF Estimat = 81 50-200 complet ion of 017 ML/MIN ed creatin 00:30 ine renal clearan ce Serum = 1.1 0.70-1. complet or 017 mg/dL 30 ed plasma 00:30 creatin ine measure ment ( Carbon = 32 21.0-32 complet dioxide 017 mmoL/L .0 ed 00:30 measure ment Serum = 98 98-107 complet or 017 mmoL/L ed plasma 00:30 chlorid e measure ment (mo Serum = 8.8 8.5-10. complet or 017 mg/dL 1 ed plasma 00:30 calcium measure ment (mas Serum = 20 7-18 complet or 017 mg/dL ed plasma 00:30 urea nitroge n measure men Serum = 1.5 0.2-1.0 complet or 017 mg/dL ed plasma 00:30 total bilirub in measure m Serum = 89 46-116 complet or 017 U/L ed plasma 00:30 alkalin e phospha tase javan Serum = 3.1 3.4-5.0 complet or 017 gm/dL ed plasma 00:30 albumin measure ment (mas Serum = 0.7 1.1-1.8 complet or 017 ed plasma 00:30 albumin /globul in mass ra Cardiac enzymes (08-06-2017 00:30) Serum < 0.02 0.00-0. complet or 017 ng/mL 06 ed plasma 00:30 troponi n i.cardi ac measu Serum = 37 39-308 complet or 017 U/L ed plasma 00:30 creatin e kinase measure m Serum < 0.5 0.0-3.6 complet or 017 ng/mL ed plasma 00:30 creatin e kinase MB measu Serum = 1.4 0-4.0 complet or 017 U/L ed plasma 00:30 creatin e kinase MB (CK-M Differential panel, method unspecified - (08-06-2017 00:30) Toxic 1+ 1+ L complet leukocy 017 ed te 00:30 granula tion detecti on Blood = 100 complet total 017 #CELLS ed cell 00:30 count Neutrop = 82 % 42-76 complet hil 017 ed count 00:30 Blood SL. SL. complet polychr 017 L ed omasia 00:30 detecti on by light m Platele SLIGHT complet t 017 DECREAS ed estimat 00:30 E e SLIGHT DECREAS E L Monocyt = 1 % 2-9 complet e % 017 ed 00:30 Macrocy 1+ 1+ L complet juan jose 017 ed detecti 00:30 on LYMPH 2 % 10-50 complet 017 ed 00:30 Automat = 15 % 0-8 complet ed 017 ed blood 00:30 band neutrop hil percent a Blood 1+ 1+ L complet anisocy 017 ed tosis 00:30 detecti on CBC w auto diff (08-06-2017 00:30) Blood = 16.3 4.8-10. complet leukocy 017 K/MM3 8 ed juan jose 00:30 count (number /volume ) Automat 2 = 16.1 11.5-17 complet ed 017 % .5 ed erythro 00:30 cyte distrib ution width Red = 3.84 4.6-6.2 complet blood 017 M/mm3 ed cell 00:30 count Blood = 113 142-424 complet platele 017 K/mm3 ed t count 00:30 Automat = 8.9 7.4-10. complet ed 017 fl 4 ed blood 00:30 platele t mean volume javan [place] % = 5.3 % 1.7-9.3 complet 017 ed 00:30 Absolut 08-06-2 = 0.9 0.1-1.0 complet e 017 K/mm3 ed monocyt 00:30 e count Automat = 92.8 82.2-97 complet ed 017 fl .8 ed erythro 00:30 cyte mean corpusc ular v Automat = 33.1 31.8-35 complet ed 017 g/dl .4 ed erythro 00:30 cyte mean corpusc ular h Mean = 30.7 27-31.2 complet corpusc 017 pg ed ular 00:30 hemoglo bin (MCH) determ Lymphoc = 5.8 % 10-50 complet yte 017 ed count, 00:30 blood, automat ed Blood = 11.8 14.1-18 complet hemoglo 017 g/dL .0 ed bin 00:30 measure ment (mass/v olum Blood = 35.7 42.0-52 complet hematoc 017 % .0 ed rit 00:30 (volume fractio n) Granulo = 88.5 37.0-80 complet cyte 017 % .0 ed percent 00:30 age Blood = 14.4 1.3-8.0 complet granulo 017 K/mm3 ed cytes 00:30 automat ed count (numb Automat = 0.1 % 0.1-12. complet ed 017 0 ed blood 00:30 eosinop hils/10 0 leukocy t Automat = 0.0 0.0-0.4 complet ed 017 K/mm3 ed blood 00:30 eosinop hil count Baso % = 0.2 % 0.1-2.0 complet 017 ed 00:30 Automat = 0.0 0-0.2 complet ed 017 K/MM3 ed blood 00:30 basophi l count (count/ vo Absolut = 1.0 0.7-4.5 complet e 017 K/mm3 ed lymphoc 00:30 yte count Digoxin level (08-06-2017 00:30) Digoxin = 0.77 1.15-2. complet level 017 ng/mL 56 ed 00:30 Blood lactic acid measurement (moles/vol (08-06-2017 00:30) Blood = 1.5 0.4-2.0 complet lactic 017 mmol/L ed acid 00:30 measure ment (moles/ vol Differential panel, method unspecified - (08-06-2017 00:30) Anisocy 1+ complet tosis 017 ed [Presen 00:30 ce] in Blood LYMPH 2 % 10% - Low complet 017 50% ed 00:30 Macrocy 1+ complet juan jose 017 ed [Presen 00:30 ce] in Blood Platele SLIGHT complet ts 017 DECREAS ed [Presen 00:30 E ce] in Blood by Light microsc opy Polychr SL. complet omasia 017 ed [Presen 00:30 ce] in Blood by Light microsc opy Toxic 1+ complet granule 017 ed s 00:30 [Presen ce] in Blood by Light microsc opy Glucose capillary blood glucometer (08-06-2017 00:02) Glucose = 104 70-110 complet 017 mg/dl ed capilla 00:[address] cCP IgG Ser-aCnc (07-20-2017 02:59) cCP IgG < 5.0 <5.0 complet 017 U/mL ed Ser-aCn 02:59 c Rheumatoid fact SerPl-aCnc (07-20-2017 02:59) Rheumat < 10 <14 complet oid 017 IU/mL ed fact 02:59 SerPl-a Cnc Osmolality Ur (07-17-2017 10:50) Osmolal 392 300-900 complet ity Ur 017 mOsm/kg ed 10:50 Calcium Ur-mCnc (07-17-2017 10:49) Calcium 2.5 complet 017 mg/dL ed Ur-mCnc 10:49 Potassium Ur-sCnc (07-17-2017 09:04) Potassi 52 complet um 017 mmol/L ed Ur-sCnc 09:04 Creat Ur-mCnc (07-17-2017 09:04) Creat 141 complet Ur-mCnc 017 mg/dL ed 09:04 Chloride Ur-sCnc (07-17-2017 09:04) Chlorid 25 complet e 017 mmol/L ed Ur-sCnc 09:04 Sodium Ur-sCnc (07-17-2017 09:04) Sodium 33 complet Ur-sCnc 017 mmol/L ed 09:04 Hgb A1c MFr Bld (07-17-2017 02:25) Hgb A1c 8.0 % 4.7-6.0 complet MFr 017 ed Bld 02:25 Phosphate SerPl-mCnc (07-17-2017 02:25) Phospha 2.9 2.5-4.5 complet te 017 mg/dL ed SerPl-m 02:25 Cnc Magnesium SerPl-mCnc (07-17-2017 02:25) Magnesi 2.4 1.9-2.4 complet um 017 mg/dL ed SerPl-m 02:25 Cnc Urate SerPl-mCnc (07-16-2017 18:30) Urate 7.4 3.7-8.0 complet SerPl-m 017 mg/dL ed Cnc 18:30 Vancomycin SerPl-mCnc (07-16-2017 04:34) Vancomy 7.4 0-40.0 complet nico 017 ug/mL ed SerPl-m 04:34 Cnc Phosphate SerPl-mCnc (07-16-2017 04:34) Phospha 2 2.0 2.5-4.5 complet te 017 mg/dL ed SerPl-m 04:34 Cnc Magnesium SerPl-mCnc (07-16-2017 04:34) Magnesi 07-16-2 1.8 1.9-2.4 complet um 017 mg/dL ed SerPl-m 04:34 Cnc Bacteria Fld Aerobe Cult (07-15-2017 06:09) Bacteri [id number] complet a XXX 017 06 No ed [...] Bacteria XXX Anaerobe+Aerobe Cult (07-14-2017 22:06) Bacteri [id number] complet a XXX 017 06 No ed Anaerob 22:06 growth e+Aerob (qualif e Cult ier value) SCT NGB6 NO GROWTH DAY 5. L Bacteria XXX Anaerobe+Aerobe Cult (07-14-2017 21:59) Bacteri [id number] complet a XXX 017 06 No ed Anaerob 21:59 growth e+Aerob (qualif e Cult ier value) SCT NGB6 NO GROWTH DAY 5. L ESR Bld Qn (07-14-2017 21:48) ESR Bld 46 0-11 complet Qn 017 mm/hr ed 21:48 CRP SerPl-mCnc (07-14-2017 21:48) CRP 1.1 0-0.9 complet SerPl-m 017 mg/dL ed [...] JULIANE Chen (ER) 3 10:41 3 12:30 [facility] Naeem Campos
--- OUTSIDE RECORDS SUMMARY | 2017-08-06 03:26 | External Medical Summary Rpt | CCD ---
Author Author , LEYDA MCKENZIE Address Unknown Phone [email or web address] Immunization Name Date Rout CVX Reac Dose Comm Prov Is Faci e tion ent ider Refu lity Give sed n Infl 10-1 Intr 135 0.5 Hist WALM No WALM uenz 6-20 amus mL oric ART4 ART4 a, 16 cula al 93 93 High r Info rmat Dose ion - Sour ce Unsp ecif ied
--- OUTSIDE RECORDS SUMMARY | 2017-08-06 03:26 | External Medical Summary Rpt | CCD ---
Author Author , JONAH MCKENZIE Address Unknown Phone [email or web address] Care Team Providers Care Grain Processor Name Role Phone Naeem Cummings III, MD, Naeem Chen III, MD Purpose Continuity of Care Document - 10-15-2013 through 2016 Problems Code Diagnosis DOS Provider Status 250.01 250.01 DIAB 10-15-2013 [facility], TYPE Hospital I [JUVENILE TYPE], NOT UNCNTRLD 274.00 274.00 10-15-2013 [facility] 401.9 401.9 10-15-2013 [facility] Allergies, Adverse Reactions, Alerts Type Allergy to [...] 43 12-78 complet (SGPT) 017 U/L ed ser/coleen 00:30 s Serum 08-06-2 = 38 15-37 [...] blood 00:30 platele t mean volume javan [place] % = 5.3 % 1.7-9.3 complet 017 [...] Bacteria Fld Aerobe Cult (07-15-2017 06:09) Bacteri [id number] complet a XXX 017 06 No ed [...] Bacteria XXX Anaerobe+Aerobe Cult (07-14-2017 22:06) Bacteri [id number] complet a XXX 017 06 No ed Anaerob 22:06 growth e+Aerob (qualif e Cult ier value) SCT NGB6 NO GROWTH DAY 5. L Bacteria XXX Anaerobe+Aerobe Cult (07-14-2017 21:59) Bacteri [id number] complet a XXX 017 06 No ed [...] JULIANE Chen (ER) 3 10:41 3 12:30 [facility] Naeem Campos
--- OUTSIDE RECORDS SUMMARY | 2017-08-06 03:26 | External Medical Summary Rpt | CCD ---
Author Author JONAH Address Unknown Phone [email or web address] Purpose Continuity of Care Document - through 2016
--- OUTSIDE RECORDS SUMMARY | 2017-08-06 03:27 | External Medical Summary Rpt ---
Author Author JONAH Espinoza, [employer] Organization [employer] Address Unknown Phone Unavailable Results Urinalysis dipstick W Reflex Microscopic panel in Urine Observa Value Referen Units Interpr Notes Date tion ce etation Range Appeara CLOUDY CLEAR No No No Aug 06 nce of informa informa informa 2016 Urine tion in tion in tion in 1:15 AM source source source data data data Bacteri 4+ O No No No Aug 06 a informa informa informa 2016 [Presen tion in tion in tion in 1:15 AM ce] in source source source Urine data data data sedimen t by Light microsc opy Bilirub NEGATIV NEG No No No Aug 06 in E informa informa informa 2016 [Presen tion in tion in tion in 1:15 AM ce] in source source source Urine data data data by Test strip Erythro 2+ NEG No Abnorma No Aug 06 cytes informa l informa 2016 [Presen tion in tion in 1:15 AM ce] in source source Urine data data Color YELLOW YELLOW No No No Aug 06 of informa informa informa 2016 Urine tion in tion in tion in 1:15 AM source source source data data data Glucose NEG No No No Aug 06 [Mass/vol informati informati informati 2016 1:15 ume] in on in on in on in AM Urine by source source source Test data data data strip Ketones NEGATIV NEG mg/dL No No Aug 06 E informa informa 2016 [Presen tion in tion in 1:15 AM ce] in source source Urine data data by Automat ed test strip Mucus NEGATIV NEG No No No Aug 06 [Presen E informa informa informa 2016 ce] in tion in tion in tion in 1:15 AM Urine source source source sedimen data data data t by Light microsc opy Nitrite POSITIV NEG No Abnorma No Aug 06 E informa l informa 2016 [Presen tion in tion in 1:15 AM ce] in source source Urine data data by Test strip pH of 5.0 - 8.5 No Normal No Aug 06 Urine informati informati 2016 1:15 on in on in AM source source data data Protein NEG mg/dL High No Aug 06 [Mass/vol informati 2016 1:15 ume] in on in AM Urine by source Automated data test strip Erythro 10-20 0 rbc/hpf No No Aug 06 cytes informa informa 2016 [Presen tion in tion in 1:15 AM ce] in source source Urine data data sedimen t by Light microsc opy Specific 1.005 - No Normal No Aug 06 gravity 1.030 informati informati 2016 1:15 of Urine on in on in AM source source data data Urobili 0.2 NEG E.U./dL No No Aug 06 nogen informa informa 2016 [Presen tion in tion in 1:15 AM ce] in source source Urine data data by Test strip Leukocy [10 O wbc/hpf No No Aug 06 juan jose wbc/hpf informa informa 2016 [#/volu ; 20 tion in tion in 1:15 AM me] in wbc/hpf source source Urine ] data data Urinalysis dipstick W Reflex Microscopic panel in Urine Observa Value Referen Units Interpr Notes Date tion ce etation Range Appeara CLOUDY CLEAR No No No Aug 06 nce of informa informa informa 2016 Urine tion in tion in tion in 1:15 AM source source source data data data Bilirub NEGATIV NEG No No No Aug 06 in E informa informa informa 2016 [Presen tion in tion in tion in 1:15 AM ce] in source source source Urine data data data by Test strip Erythro 2+ NEG No Abnorma No Aug 06 cytes informa l informa 2016 [Presen tion in tion in 1:15 AM ce] in source source Urine data data Color YELLOW YELLOW No No No Aug 06 of informa informa informa 2016 Urine tion in tion in tion in 1:15 AM source source source data data data Glucose NEG No No No Aug 06 [Mass/vol informati informati informati 2016 1:15 ume] in on in on in on in AM Urine by source source source Test data data data strip Ketones NEGATIV NEG mg/dL No No Aug 06 E informa informa 2016 [Presen tion in tion in 1:15 AM ce] in source source Urine data data by Automat ed test strip Mucus NEGATIV NEG No No No Aug 06 [Presen E informa informa informa 2016 ce] in tion in tion in tion in 1:15 AM Urine source source source sedimen data data data t by Light microsc opy Nitrite POSITIV NEG No Abnorma No Aug 06 E informa l informa 2016 [Presen tion in tion in 1:15 AM ce] in source source Urine data data by Test strip pH of 5.0 - 8.5 No Normal No Aug 06 Urine informati informati 2016 1:15 on in on in AM source source data data Protein NEG mg/dL High No Aug 06 [Mass/vol informati 2016 1:15 ume] in on in AM Urine by source Automated data test strip Specific 1.005 - No Normal No Aug 06 gravity 1.030 informati informati 2016 1:15 of Urine on in on in AM source source data data Urobili 0.2 NEG E.U./dL No No Aug 06 nogen informa informa 2016 [Presen tion in tion in 1:15 AM ce] in source source Urine data data by Test strip INR in Blood by Coagulation assay Observa Value Referen Units Interpr Notes Date tion ce etation Range IS PATIENT ON ANTICOAGULANTS? Y LIST ANTICOAGULANTS: WARFARIN PTT RESULTS MUST BE CALLED IF PT ON HEPARIN!!! Y INR in 0.9 - 1.1 No High INDICATIO Aug 06 Blood by informati N 2017 Coagulati on in 12:30 AM on assay source INR data RANGETHER APY FOR DVT, PE, ATRIAL FIB; 2.0 - 3.0PROPHY LAXIS FOR VTETHERAP Y FOR MECHANICA L HEART 2.5 - 3.5VALVE; PREVENTIO N OF SYSTEMICE MBOLISM SECONDARY TO AMI Prothromb 9.4 - SECONDS High No Aug 06 in time 11.8 informati 2016 (PT) in on in 12:30 AM Platelet source poor data plasma by Coagulati on assay Digoxin [Mass/volume] in Serum or Plasma Observa Value Referen Units Interpr Notes Date tion ce etation Range Digoxin 1.15 - ng/mL Low No Aug 06 [Mass/vol 2.56 2016 ume] in on in 12:30 AM Serum or source Plasma data CBC W Auto Differential panel in Blood Observa Value Referen Units Interpr Notes Date tion ce etation Range Basophils 0 - 0.2 K/MM3 Normal No Aug 062016 [#/volume on in 12:30 AM ] in source Blood by data Automated count Basophils 0.1 - 2.0 % Normal No Aug 06 inform2016 leukocyte on in 12:30 AM s in source Blood by data Automated count Eosinophi 0.0 - 0.4 K/mm3 Normal No Aug 06 ls informati 2016 [#/volume on in 12:30 AM ] in source Blood by data Automated count Eosinophi 0.1 - % Normal No Aug 06 ls/100 12.0 inform2016 leukocyte on in 12:30 AM s in source Blood by data Automated count Granulocy 1.3 - 8.0 K/mm3 High No Aug 06 juan jose 2016 [#/volume on in 12:30 AM ] in source Blood by data Automated count Granulocy 37.0 - % High No Aug 06 juan jose/100 80.0 inform2016 leukocyte on in 12:30 AM s in source Blood by data Automated count Hematocri 42.0 - % Low No Aug 06 t [Volume 52.0 2016 on in 12:30 AM Fraction] source of Blood data Hemoglobi 14.1 - g/dL Low No Aug 06 n 18.0 2016 [Mass/vol on in 12:30 AM ume] in source Blood data Lymphocyt 0.7 - 4.5 K/mm3 Normal No Aug 06 es 2016 [#/volume on in 12:30 AM ] in source Unspecifi data ed specimen by Automated count Lymphocyt 10 - 50 % Low No Aug 06 es inform2016 [#/volume on in 12:30 AM ] in source Unspecifi data ed specimen by Automated count Erythrocy 27 - 31.2 pg Normal No Aug 06 te mean 2016 corpuscul on in 12:30 AM ar source hemoglobi data n [Entitic mass] Erythrocy 31.8 - g/dl Normal No Aug 06 te mean 35.4 2016 corpuscul on in 12:30 AM ar source hemoglobi data n concentra tion [Mass/vol ume] by Automated count Erythrocy 82.2 - fl Normal No Aug 06 te mean 97.8 informati 2016 corpuscul on in 12:30 AM ar volume source [Entitic data volume] by Automated count Monocytes 0.1 - 1.0 K/mm3 Normal No Aug 06 inform2016 [#/volume on in 12:30 AM ] in source Blood by data Automated count Monocytes 1.7 - 9.3 % Normal No Jul 22 /100 informati 2016 leukocyte on in 12:30 AM s in source Blood by data Automated count Platelet 7.4 - fl Normal No Aug 06 mean 10.4 informati 2016 volume on in 12:30 AM [Entitic source volume] data in Blood by Automated count Platelets 142 - 424 K/mm3 Low No Aug 06 inform2016 [#/volume on in 12:30 AM ] in source Blood data Erythrocy 4.6 - 6.2 M/mm3 Low No Aug 06 juan jose informati 2016 [#/volume on in 12:30 AM ] in source Amniotic data fluid Erythrocy 11.5 - % Normal No Aug 06 te 17.5 informati 2016 distribut on in 12:30 AM ion width source [Entitic data volume] by Automated count Leukocyte 4.8 - K/MM3 High No Aug 06 s 10.8 2016 [#/volume on in 12:30 AM ] in source Blood data Differential panel, method unspecified - Observa Value Referen Units Interpr Notes Date tion ce etation Range Anisocy 1+ No No No No Aug 06 tosis informa informa informa informa 2016 [Presen tion in tion in tion in tion in 12:30 ce] in source source source source AM Blood data data data data Neutrophi 0 - 8 % High No Aug 06 ls.band informati 2017 form/100 on in 12:30 AM leukocyte source s in data Blood by Automated count LYMPH 2 10 - 50 % Low No Aug 06 inform2016 tion in 12:30 source AM data Macrocy 1+ No No No No Aug 06 juan jose informa informa informa informa 2016 [Presen tion in tion in tion in tion in 12:30 ce] in source source source source AM Blood data data data data Monocytes 2 - 9 % Low No Jul 22 /100 informati 2016 leukocyte on in 12:30 AM s in source Blood by data Automated count Platele SLIGHT No No No No Aug 06 ts DECREAS informa informa informa informa 2016 [Presen E tion in tion in tion in tion in 12:30 ce] in source source source source AM Blood data data data data by Light microsc opy Polychr SL. No No No No Aug 06 omasia informa informa informa informa 2016 [Presen tion in tion in tion in tion in 12:30 ce] in source source source source AM Blood data data data data by Light microsc opy Neutrophi 42 - 76 % High No Aug 06 ls informati 2016 [#/volume on in 12:30 AM ] in source Blood by data Automated count Cells No #CELLS No No Aug 06 Counted informati informati informati 2016 Total [#] on in on in on in 12:30 AM in Blood source source source data data data Toxic 1+ No No No No Aug 06 granule informa informa informa informa 2017 s tion in tion in tion in tion in 12:30 [Presen source source source source AM ce] in data data data data Blood by Light microsc opy Lactate [Moles/volume] in Blood Observa Value Referen Units Interpr Notes Date ti ce etation Range Lactate 0.4 - 2.0 mmol/L Normal No Aug 06 [Moles/vo informati 2016 lume] in on in 12:30 AM Blood source data Glucose [Mass/volume] in Capillary blood by Glucometer Observa Value Referen Units Interpr Notes Date ti ce etation Range Glucose 70 - 110 mg/dl No No Aug 06 [Mass/vol informati informati 2016 ume] in on in on in 12:02 AM Capillary source source blood by data data Glucomete r Lactate [Moles/volume] in Blood Observa Value Referen Units Interpr Notes Date tion ce etation Range Lactate 0.4 - 2.0 mmol/L Normal No Sep 29 [Moles/vo informati 2016 4:35 lume] in on in PM Blood source data Activated partial thrombplastin time (aPTT) in Platelet poor plasma by Coagulation assay Observa Value Referen Units Interpr Notes Date tion ce etation Range Activated 23.6 - SECONDS Normal No Sep 29 partial 34.0 informati 2016 4:35 thrombpla on in PM stin time [...] Carbon 21.0 - mmoL/L Normal No Sep 29 dioxide, 32.0 informati 2017 4:35 total on in PM [Moles/vo source lume] in data Serum or Plasma Creatinin 0.70 - mg/dL High No Sep 29 e 1.30 informati 2017 4:35 [Mass/vol on in PM ume] in source Serum or data Plasma Creatinin 50 - 200 ML/MIN Low No Sep 29 e renal informati 2017 4:35 clearance on in PM source predicted data by Cockcroft -Gault formula Estimated >60 ML/MIN No REFERENCE Sep 29 informati RANGE: 2017 4:35 glomerula on in >60 PM r source ML/MIN/1. filtratio data 73 SQUARE n rate METERSIf (GF this patient is -A merican, then multiply theresult by 1.210. Globulin 1.3 - 3.2 gm/dL High No Sep 29 [Mass/vol informati 2017 4:35 ume] in on in PM Serum source data Glucose 74 - 106 mg/dL High No Sep 29 [Mass/vol informati 2016 4:35 ume] in on in PM Serum or source Plasma data Potassium 3.5 - 5.1 mmoL/L Normal No Sep 29 inform2016 4:35 [Moles/vo on in PM lume] in source Serum or data Plasma Sodium 136 - 145 mmoL/L Normal No Jul 14 [Moles/vo informati 2016 4:35 lume] in on in PM Serum or source Plasma data Aspartate 15 - 37 U/L High No Sep informati 2016 4:35 aminotran on in PM sferase source [Enzymati data c activity/ volume] in Serum or Plasma Alanine 12 - 78 U/L Normal No Jul 14 aminotran 2016 4:35 sferase on in PM [Enzymati source c data activity/ volume] in Serum or Plasma Protein 6.4 - 8.2 gm/dL Normal No Jul 14 [Mass/vol informati 2016 4:35 ume] in on [...] - 0.2 K/MM3 Normal No Sep 29 2016 4:35 [#/volume on in PM ] in source Blood by data Automated count Basophils 0.1 - 2.0 % Normal No Sep 29 /100 informati 2016 4:35 leukocyte on in PM [...] Normal No Sep 29 juan jose informati 2016 4:35 [#/volume on in PM ] in source Blood by data Automated count Granulocy 37.0 - % Normal No Sep 29 juan jose/100 80.0 informati 2016 4:35 leukocyte on in PM s in source Blood by data Automated count Hematocri 42.0 - % Low No Sep 29 t [Volume 52.0 informati 2016 4:35 on in PM Fraction] source of [...] % Normal No Sep 29 es informati 2016 4:35 [#/volume on in PM ] in source Unspecifi data ed specimen by Automated count Erythrocy 27 - 31.2 pg High No Sep 29 te mean informati 2016 4:35 corpuscul on in PM ar source hemoglobi data n [Entitic mass] Erythrocy 31.8 - g/dl Normal No Sep 29 te mean 35.4 informati 2016 4:35 corpuscul on in PM ar source hemoglobi data n concentra tion [Mass/vol ume] by Automated count Erythrocy 82.2 - fl Normal No Sep 29 te mean 97.8 informati 2016 4:35 corpuscul on in PM ar volume source [Entitic data volume] by Automated count Monocytes 0.1 - 1.0 K/mm3 Normal No Sep 29 informati 2016 4:35 [#/volume on in PM ] in source Blood by data Automated count Monocytes 1.7 - 9.3 % Normal No Sep 29 /100 informati 2016 4:35 leukocyte on in PM s in source Blood by data Automated count Platelet 7.4 - fl Normal No Jun 29 mean 10.4 informati 2016 4:35 volume on in PM [Entitic source volume] data in Blood by Automated count Platelets 142 - 424 K/mm3 Normal No Jun 29 inform2016 4:35 [#/volume on in PM ] in source Blood data Erythrocy 4.6 - 6.2 M/mm3 Low No Jun 29 juan jose informati 2016 4:35 [#/volume on in PM ] in source Amniotic data fluid Erythrocy 11.5 - % Normal No Jul 14 te 17.5 informati 2016 4:35 distribut on in PM ion width source [Entitic data volume] by Automated count Leukocyte 4.8 - K/MM3 Normal No Jul 14 s 10.8 informati 2016 4:35 [#/volume on [...] Observa Value Referen Units Interpr Notes Date ti ce etation Range Urea 7 - 18 [...] Automated count Hematocri 42.0 - % Low Apr 11 t [Volume 52.0 informati 2016 4:17 on in PM Fraction] source of Blood data Hemoglobi 14.1 - g/dL Low Apr 11 n 18.0 informati 2016 4:17 [...] 424 K/mm3 Low No Apr 11 informati 2016 4:17 [#/volume [...] AMI Prothromb 9.4 - SECONDS High No Mar 27 in time 11.8 informati 2017 4:17 (PT) in on in PM Platelet source poor data plasma by Coagulati on assay
--- NOTE | 2017-08-06 08:00 | RADIOLOGY REPORT PS360 ---
CHEST-PORTABLE COMPARISON: Portable upright chest 07/14/2017 HISTORY: Fever TECHNIQUE: Portable upright chest FINDINGS: The lung fam are well expanded and appear clear of infiltrate. The cardiac silhouette and vascularity are normal except for calcification of the aortic arch. Is no pleural fluid. There is mild degenerative change of the lower thoracic spine. IMPRESSION: Nonacute chest findings
--- NOTE | 2017-08-06 10:41 | PHARMACY CLINIC NOTE ---
Patient Demographics Patient Demographics Admission date: 08/06/17 Date: 08/06/17 Time: 1039 Allergies Coded Allergies: No Known Allergies (08/06/17) HEIGHT- FT: 6 IN: 4.00 K.230 VTE General Information Labs: Laboratory Tests 08/06 0030 Coagulation PT (9.4 - 11.8 SECONDS) 26.3 H INR (0.9 - 1.1) 2.41 H Hematology Hgb (14.1 - 18.0 g/dL) 11.8 L Hct (42.0 - 52.0 %) 35.7 L Plt Count (142 - 424 K/mm3) 113 L Disclaimer The following section includes nursing documentation that has been pulled in for pharmacy review. Patient's VTE score: 3 Patient's VTE Risk: LOW RISK Clinical trial participant? No VTE prophylaxis NQF [id number] VTE prophylaxis ordered? Yes Type of prophylaxis/treatment: MICAELA (AND WARFARIN (INR=2.41)) at 1040
--- NOTE | 2017-08-06 17:10 | HISTORY AND PHYSICAL REPORT ---
Demographics: Admit date: 08/06/17 Chief complaint: Confusion, difficulty urinating PRIMARY DIAGNOSIS: UTI Allergies: Coded Allergies: No Known Allergies (08/06/17) History of present illness: History of present illness: 82 year old male with histlroy of mild dementia and diabetes who presented to the ED with complaint of confusion and difficulty urinating for about 24 hours. He reoprts to me that he has had increasing difficulty over the past week and history is notable for recently hospital admission during which time he had a urinary catheter. In the ED he was found to be febrile, with elevated WBC and abnormal UA and was admitted for management. Past medical history: Family HX Diabetes Yes CAD No Hypertension Yes Hyperlipidemia No Cancer No TB No Immunization HX DT/Tetanus NOT SURE Flu LAST YEAR Pneumonia 1-4 YRS TB Test in last year No General Angina: No DC: Yes Hypertension? Yes Hyperlipidemia? Yes CHF? No COPD? No Asthma? No Hernia? No CVA? No Seizures? No Diabetes? Yes Insulin Dependent: No Insulin Pump: No Home FSBS? Yes UTI? Yes Stones? Yes GB Disease: No Nephritic Syndrome? No Asplenia? No Hepatitis? No Sickle Cell Disease? No Cataracts? No Glaucoma? No MRSA? No HIV? No TB? No Cancer? No More? No Past Surgical HX Previous Surgery?Y R KNEE VASECTOMY KIDNEY STONE REMOVAL Current home meds: Reported Medications Allopurinol 100 MG PO DAILY ASPIRIN (Aspirin 325MG) 325 MG PO DAILY Atorvastatin Calcium (Atorvastatin) 40 MG PO DAILY Carvedilol (Carvedilol 25MG) 25 MG PO BID Colchicine (Colcrys 0.6MG) 0.6 MG PO DAILY DIGOXIN (Digox) 0.125 MG PO DAILY DOCUSATE SODIUM (Docusate Sodium) 100 MG PO BID Furosemide (Furosemide 40MG) 40 MG PO BID Gabapentin (Gabapentin 300MG) 300 MG PO TID Insulin Glargine (Lantus Insulin Vial) 50 UNITS SC BID INSULIN LISPRO (Humalog) 30 UNITS SC TID ISOSORBIDE MONONITRATE (Isosorbide Mononitrate ER) 120 MG PO DAILY Oxycodone 5MG/[id number] (Oxycodone-Acetaminophen 5-325) 1 TAB PO Q4HP PRN PAIN Warfarin Sodium (Warfarin 4MG) 6 MG PO DAILY Social Hx: Smoking HX Tobacco No Type Cigarettes Packs/day 1 1/2 - 2 PACKS Alcohol Alcohol: No Hx of Drug Use Drug Use? No Patien't marital status is Patient's support system is good Comment: Lives alone, daughter nearby Review of systems: Constitutional chills, fever, malaise, weakness. Eyes No: no symptoms reported. Ears, Nose, Mouth, Throat nose congestion Respiratory cough (intermittent). Cardiovascular No no symptoms reported Gastrointestinal/Abdominal No abdominal pain, diarrhea, nausea, poor appetite, poor fluid intake, vomiting (vomiting started yesterday) Genitourinary see HPI. No: hematuria. Musculoskeletal No: no symptoms reported. Skin other (recent cellulitis right leg). Neurological Yes: see HPI. Psychiatric No: no symptoms reported. Exam: Lab data for last 24 hours: Laboratory Tests 08/06/17 0636: POC Glucose 92 08/06/17 0115: Urine Color YELLOW, Urine Appearance CLOUDY, Urine pH 8.0, Ur Specific [place] 1.020, Urine Protein 2+ H, Urine Ketones NEGATIVE, Urine Blood 2+ H, Urine Nitrate POSITIVE H, Urine Bilirubin NEGATIVE, Urine Urobilinogen 0.2, Ur Leukocyte Esterase NEGATIVE, Urine RBC 10-20, Urine WBC 10-20, Urine Bacteria 4+ , Urine Glucose NEGATIVE 08/06/17 0030: Lactic Acid 1.5 08/06/17 0030: Sodium 138, Potassium 3.6, Chloride 98, Carbon Dioxide 32, BUN 20 H, Creatinine 1.1, Estimated Creat Clear 81, Estimated GFR (MDRD) 64, Glucose 92, Calcium 8.8, Total Bilirubin 1.5 H, AST 38 H, ALT 43, Alkaline Phosphatase 89, Creatine Kinase 37 L, CK-MB (CK-2) Rel Index 1.4, CK and CKMB Interp < 0.5, Troponin I < 0.02, Total Protein 7.3, Albumin 3.1 L, Globulin 4.2 H, Albumin/Globulin Ratio 0.7 L, PT 26.3 H, INR 2.41 H, WBC 16.3 H, RBC 3.84 L, Hgb 11.8 L, Hct 35.7 L, MCV 92.8, RDW 16.1, Plt Count 113 L, MPV 8.9, Gran % 88.5 H, Gran # 14.4 H, Total Counted 100, Lymphocytes % 5.8 L, Monocytes % 5.3, Eosinophils % 0.1, Basophils % 0.2, Neutrophils 82 H, Band Neutrophils 15 H, Lymphocytes (Manual) 2 L, Lymphocytes # 1.0, Monocytes (Manual) 1 L, Monocytes # 0.9, Eosinophils # 0.0, Basophils # 0.0, Toxic Granulation 1+, Platelet Estimate SLIGHT DECREASE, Polychromasia SL., Anisocytosis 1+, Macrocytosis 1+, PUBS MCHC 33.1, MCH 30.7, Digoxin 0.77 L 08/06/17 0002: POC Glucose 104 Microbiology 08/06 115 URINE CC: Urine Culture - RECD 08/06 30 BLOOD: Anaerobic Blood Culture - RECD 08/06 30 BLOOD: Aerobic Blood Culture - RECD 08/06 30 BLOOD: Anaerobic Blood Culture - RECD 08/06 30 BLOOD: Aerobic Blood Culture - RECD Admission vital signs: 1ST Vital Signs Result Date Time Pulse Ox 96 08/05 2358 B/P 148/91 08/05 2358 Temp 103.9 08/05 2358 Pulse 95 08/05 2358 Resp 22 08/05 2358 O2 Delivery ROOM AIR 08/06 0345 Additional information: Pleasant male, up on BSC. + emisis and loose stool. Mildly diaphoretic after vomiting. Denies pain. ENT exam unremarkable, neck supple. Heart with RRR, lungs clear but coarse. Abdomen soft, NT/ND, BS hyperactive. Trace lower extremity edema. Alert, oriented x 3 but poor recall over events over the past 3 weeks. Plan: Problem List 1. UTI (urinary tract infection) Assessment/Plan Continue coverage with Invanz given his recent hospitalization with catheter placement prior to symptom onset. Urine and blood cultures pending. CT abd/pelvis today given retention, fever and vomiting. Otherwise support with maintenance IV fluids, diet as tolerated. SSI coverage Delirium seems improved with hydration 2. IDDM (insulin dependent diabetes mellitus) 3. Vomiting 4. Fever 5. Urinary retention 6. Delirium Plan: see above at 1710
--- NOTE | 2017-08-06 20:04 | RADIOLOGY REPORT PS360 ---
CT ABD PELVIS W/ CONTRAST COMPARISON: None HISTORY: Fever, nausea some vomiting, suspected UTI TECHNIQUE: Multiaxial scans obtained from the hemidiaphragms to the pelvic floor and were performed with IV contrast only. Sagittal and coronal reformats were evaluated as well. FINDINGS: The lower lung fam are clear. The liver is normal size and shows mild diffuse fatty infiltration. There is borderline cardio megaly with coronary artery calcification noted. The spleen is normal. The stomach and pancreas are grossly normal. The gallbladder is normal size and there is a tiny calcification near the neck the gallbladder. This could be a vascular calcification adjacent to the gallbladder but cannot I cannot deftly exclude a tiny calcified gallstone. The adrenal glands are normal. The kidneys are normal in size and show symmetrical function with mild cortical thinning of both kidneys. Is a tiny benign-appearing cortical cyst lower pole left kidney. There are no calculi and is no obstructive uropathy of either kidney. There is prominent diffuse arteriosclerotic calcification of the abdominal aorta with borderline aneurysmal dilatation measuring 2.7 cm in diameter just above the bifurcation. Small bowel is normal. The appendix is normal. There is prominent diffuse diverticulosis of the descending and sigmoid colon most prominent in the sigmoid region with is no definite evidence of diverticulitis. There is a Valverde catheter in the urinary bladder which is partially decompressed and there is diffuse thickening of the bladder wall possibly due to some degree of chronic cystitis. The prostate is moderately enlarged. There are mild degenerative changes of the lumbar spine. IMPRESSION: 1. Tiny calcified gallstone near the neck of the gallbladder versus vascular calcification 2. No evidence of renal or ureteral calculi and is no obstructive uropathy of either kidney. 3. Prominent diffuse bladder wall thickening similar which is due to the fact of the bladder is decompressed but I do suspect some degree of acute and/or chronic cystitis.
[2017-08-07 04:18] VITALS: BP 152/86
--- NOTE | 2017-08-07 08:01 | ACUTE CARE PROGRESS NOTE (QUA) ---
Progress Notes Subjective Date 08/07/17 Time 0800 Note Patient continues to have fevers and feels "as bad as yesterday." He has eaten and drank and is currently afebrile. Anterior lung fam are clear , heart rate regular. Abdomen is soft, Valverde catheter draining dark yellow urine. Soft and nontender. Objective Findings Last VS-Temp:97.5 B/P:152/86 Pulse:67 Resp:18 SaO2:100 OXYGEN Last weight lbs:225 oz:6 K.230 Method:Bed Scales Assessment/Plan Problem List 1. UTI (urinary tract infection) Qualifiers: Urinary tract infection type: acute cystitis Hematuria presence: without hematuria Qualified Code: N30.00 - Acute cystitis without hematuria 2. IDDM (insulin dependent diabetes mellitus) 3. Vomiting 4. Fever 5. Urinary retention 6. Delirium Patient condition Improving Plan: continue current care, watch culture and sensitivities today. Continue to treat fevers. Advance diet. This inpt stay is expected to cross 2 MNs from start of care Yes at 0801
[2017-08-07 08:30] VITALS: BP 148/70
[2017-08-07 09:25] LABS: LYMPH # 1.3 K/mm3 (0.7-4.5); LYMPH % 11.1 % (10-50)
[2017-08-07 09:34] VITALS: BP 148/70
[2017-08-07 09:39] LABS: HEMOGLOBIN 10.7 g/dL (14.1-18.0)
[2017-08-07 16:05] VITALS: BP 143/81
[2017-08-07 19:23] VITALS: BP 148/73
[2017-08-07 19:24] VITALS: BP 148/73
[2017-08-08 04:00] VITALS: BP 152/80
--- NOTE | 2017-08-08 08:19 | ACUTE CARE PROGRESS NOTE (QUA) ---
Progress Notes Subjective Date 08/08/17 Time 0715 Note Patient states "I feel like I'm on the mend." He has not had any further fevers through the night. Urine culture showed Klebsiella which is sensitive to the Invanz he has been receiving since admission. Alert and oriented 3. Rate and rhythm regular. 1+ bilateral lower extremity edema. Pulses 2+ bilaterally. Scattered wheezes throughout all lung fam. No CVA tenderness. Abdomen soft and nontender with normoactive bowel sounds Patient/family reports: feeling better Nursing reports: no complaints Objective Findings Last VS-Temp:98.1 B/P:152/80 Pulse:72 Resp:20 SaO2:100 OXYGEN Last weight lbs:225 oz:6 K.230 Method:Bed Scales Reviewed: medications, vital signs, lab results Assessment/Plan Problem List 1. UTI (urinary tract infection) Qualifiers: Urinary tract infection type: acute cystitis Hematuria presence: without hematuria Qualified Code: N30.00 - Acute cystitis without hematuria 2. IDDM (insulin dependent diabetes mellitus) 3. Vomiting 4. Fever 5. Urinary retention 6. Delirium Patient condition Improving Plan: continue current care This inpt stay is expected to cross 2 MNs from start of care Yes Comments: Continue Invanz. PT/OT to evaluate today. Plan to discharge tomorrow with home health for ongoing therapy. at 0819
[2017-08-08 08:30] VITALS: BP 164/72
[2017-08-08 16:30] VITALS: BP 141/71
[2017-08-08 19:15] VITALS: BP 133/65
[2017-08-08 19:28] VITALS: BP 133/65
[2017-08-09 03:53] VITALS: BP 156/87
[2017-08-09 07:25] VITALS: BP 145/72
--- NOTE | 2017-08-09 07:53 | ACUTE CARE PROGRESS NOTE (QUA) ---
Progress Notes Subjective Date 08/09/17 Time 0752 Note Overall patient feels somewhat better, continues to be weak. Physical therapy notes from yesterday reviewed. Patient's lungs are clear, heart rate regular. Abdomen soft. He ate 100 percent of his breakfast. Objective Findings Last VS-Temp:98.5 B/P:145/72 Pulse:70 Resp:20 SaO2:95 ROOM AIR Last weight lbs:225 oz:6 K.230 Method:Bed Scales Assessment/Plan Problem List 1. UTI (urinary tract infection) Qualifiers: Urinary tract infection type: acute cystitis Hematuria presence: without hematuria Qualified Code: N30.00 - Acute cystitis without hematuria 2. IDDM (insulin dependent diabetes mellitus) 3. Vomiting 4. Fever 5. Urinary retention 6. Delirium Patient condition Improving Plan: continue current care, consider swing bed transfer today given patient's need for physical therapy and 7 more days of IV antibiotics to adequately treat his severe UTI. This inpt stay is expected to cross 2 MNs from start of care Yes at 0752
[2017-08-09 09:03] VITALS: BP 145/72
--- NOTE | 2017-08-09 13:21 | DISCHARGE SUMMARY STANDARD ---
Demographics Admit date: 08/06/17 Discharge date: 08/09/17 History of present illness History of present illness 82 year old male with histlroy of mild dementia and diabetes who presented to the ED with complaint of confusion and difficulty urinating for about 24 hours. He reoprts to me that he has had increasing difficulty over the past week and history is notable for recently hospital admission during which time he had a urinary catheter. In the ED he was found to be febrile, with elevated WBC and abnormal UA and was admitted for management. Hospital Course Hospital Course: Patient was admitted hospital, broad-spectrum antibiotic therapy was initiated, patient was found to have low sepsis risk, and blood cultures were negative. Patient was found to have Klebsiella in his urine, fortunately sensitive to commonly used IV antibiotics and he was transitioned to ceftriaxone therapy intravenously. Patient improved but continued be very weak. He was evaluated by physical therapy and felt that he would benefit from twice a day intense physical therapy for the next several days. He'll be transferred to swing bed today for ongoing physical therapy, IV antibiotics for the next 7 days and close observation. He'll continue to maintain his DNR status. Please note mental status is good, rehab potential is good and prognosis is good. Discharge diagnoses Problem List 1. UTI (urinary tract infection) 2. IDDM (insulin dependent diabetes mellitus) 3. Vomiting 4. Fever 5. Urinary retention 6. Delirium Medications Medications: Discharge meds are as noted. Follow up Follow up in office in: 1 DAY with: Rod Fernando MD at 1321
[2017-08-09 13:36] VITALS: BP 145/72
--- NOTE | 2017-08-09 13:41 | ACUTE CARE PROGRESS NOTE (QUA) ---
Progress Notes Subjective Date 08/09/17 Time 1340 Assessment/Plan Problem List 1. UTI (urinary tract infection) 2. IDDM (insulin dependent diabetes mellitus) 3. Vomiting 4. Fever 5. Urinary retention 6. Delirium This inpt stay is expected to cross 2 MNs from start of care Yes Antibiotic Stewardship (2) Current Culture Results Microbiology 08/06 2210 BLOOD: Anaerobic Blood Culture - RES 08/06 2210 BLOOD: Aerobic Blood Culture - RES 08/06 115 URINE CC: Urine Culture - COMP KLEBSIELLA PNEUMONIAE Infxn that will respond? Yes Right drug,dose,and route? Yes More targeted antbx? No at 1340
== END 2017-08-09 14:09 | disposition swing bed (61) | DRG 690 ==
LOC: ER 23:52 → 2ND 08-06 03:22
PROVIDERS: Emergency Medicine
DX: N30.00 Acute cystitis without hematuria (principal); I48.0 Paroxysmal atrial fibrillation; E11.9 Type 2 diabetes mellitus without complications; I10 Essential (primary) hypertension; R33.9 Retention of urine, unspecified; Z79.4 Long term (current) use of insulin; Z79.01 Long term (current) use of anticoagulants
CPT/HCPCS: J1335; J2405; Q9967

== ENCOUNTER 2017-08-09 13:23 | Inpatient (IN) | payer MEDICARE, MEDICAID ==
[~2017-08-09] VITALS: Ht 193 cm; Wt 106.3 kg
[~2017-08-09 13:23] MED LIST changes: +ALLOPURINOL100 MG PO; +ASPIRIN 325MG325 MG PO; +CARVEDILOL 25MG25 MG PO; +COLCRYS0.6 M1 PO; +DOCUSATE SOD100 MG PO; +FUROSEMIDE40 MG PO; +GABAPENTIN300 MG PO; +HUMALOG100 U/M1 SC; +ISOSORBIDE MONO60 MG PO; +LANTUS INS100 UNITS/ SC; +LIPITOR40 MG PO; +PERCOCET 5/3251 EACH PO; +WARFARIN SODIUM4 MG PO
--- OUTSIDE RECORDS SUMMARY | 2017-08-09 13:29 | External Medical Summary Rpt | CCD ---
Author Author , JONAH MCKENZIE Address Unknown Phone [email or web address] Care Team Providers Care Eap Clinician Name Role Phone Naeem Cummings III, MD, Naeem Chen III, MD Purpose Continuity of Care Document - 10-15-2013 through 2016 Problems Code Diagnosis DOS Provider Status 250.01 250.01 DIAB 10-15-2013 [facility], TYPE Hospital I [JUVENILE TYPE], NOT UNCNTRLD 274.00 274.00 10-15-2013 [facility]NSPEC[facility]IED 401.9 401.9 10-15-2013 [facility] Allergies, Adverse Reactions, Alerts Type Allergy to [...] Order Detail nces retati t Range on Glucose capillary blood glucometer (08-08-2017 20:48) Glucose 10-2 = 390 70-110 complet 017 mg/dl ed capilla 20:[address] Glucose capillary blood glucometer (08-08-2017 17:01) Glucose 10-24-2 = 372 70-110 complet 017 mg/dl ed capilla 17:[address] Glucose capillary blood glucometer (08-08-2017 11:42) Glucose 10--2 = 330 70-110 complet 017 mg/dl ed capilla 11:[address] Whole blood INR measurement (08-08-2017 10:41) Prothro --2 = 14.2 9.4-11. complet mbin 017 SECONDS 8 ed time 10:41 (PT) in platele t poor p Whole 2 = 1.31 0.9-1.1 complet blood 017 ed INR 10:41 measure ment Antibiotic sensitivity studies (08-08-2017 07:02) Piperac -24-2 <= 4 complet illin/t 017 ug/ml ed azobact 07:02 am suscept ibility test by minimum inhibit ory concent ration Tobramy 24-2 <= 1 complet nico 017 ug/ml ed suscept 07:02 ibility test by minimum inhibit ory concent ration Trimeth 24-2 <= 20 complet oprim/s 017 ug/ml ed ulfamet 07:02 hoxazol e suscept ibility test by minimum inhibit ory concent ration Ampicil 24-2 <= 2 complet jose luis/sul 017 ug/ml ed bactam 07:02 suscept ibility test by minimum inhibit ory concent ration Levoflo 10-24-2 <= 0.12 complet xacin 017 ug/ml ed suscept 07:02 ibility test by minimum inhibit ory concent ration Imipene 10-24-2 <= 0.25 complet m 017 ug/ml ed suscept 07:02 ibility test by minimum inhibit ory concent ration Gentami 10-24-2 <= 1 complet nico 017 ug/ml ed suscept 07:02 ibility test by minimum inhibit ory concent ration Nitrofu 1024-2 = 32 complet rantoin 017 ug/ml ed 07:02 suscept ibility test by minimum inhibit ory concent ration Cefepim 10-24-2 <= 1 complet e 017 ug/ml ed suscept 07:02 ibility test by minimum inhibit ory concent ration Ertapen 10-24-2 <= 0.5 complet em 017 ug/ml ed suscept 07:02 ibility test by minimum inhibit ory concent ration Extende 10-24-2 = ug/ml complet d 017 ed spectru 07:02 m beta lactama se (ESBL) produci ng bacteri a suscept ibility test by minimum inhibit ory Cefazol 10-24-2 <= 4 complet in 017 ug/ml ed suscept 07:02 ibility test by minimum inhibit ory concent ration Ceftria 10-24-2 <= 1 complet xone 017 ug/ml ed suscept 07:02 ibility test by minimum inhibit ory concent ration Ceftazi 10-24-2 <= 1 complet dime/po 017 ug/ml ed tassium 07:02 clavula yury suscept ibility test by minimum inhibit ory concent ration Amoxici 10-24-2 <= 2 complet llin/cl 017 ug/ml ed avulana 07:02 te suscept ibility test by minimum inhibit ory concent ration Ampicil 10-24-2 >= 32 complet jose luis 017 ug/ml ed suscept 07:02 ibility test by minimum inhibit ory concent ration Glucose capillary blood glucometer (08-08-2017 06:26) Glucose 2 = 260 70-110 complet 017 mg/dl ed capilla 06:[address] Glucose capillary blood glucometer (08-07-2017 17:01) Glucose 08-07-2 = 290 70-110 complet 017 mg/dl ed capilla 17:[address] Glucose capillary blood glucometer (08-07-2017 11:39) Glucose 08-07-2 = 251 70-110 complet 017 mg/dl ed capilla 11:[address] Glucose capillary blood glucometer (08-07-2017 06:22) Glucose 08-07-2 = 218 70-110 complet 017 mg/dl ed capilla 06:[address] CBC w auto diff (08-07-2017 06:07) Blood = 11.3 4.8-10. complet leukocy 017 K/MM3 8 ed juan jose 06:07 count (number /volume ) Automat = 16.3 11.5-17 complet ed 017 % .5 ed erythro 06:07 cyte distrib ution width Red = 3.32 4.6-6.2 complet blood 017 M/mm3 ed cell 06:07 count Blood = 90 142-424 complet platele 017 K/mm3 ed t count 06:07 Automat = 10.2 7.4-10. complet ed 017 fl 4 ed blood 06:07 platele t mean volume javan Harney % = 6.9 % 1.7-9.3 complet 017 ed 06:07 Absolut = 0.8 0.1-1.0 complet e 017 K/mm3 ed monocyt 06:07 e count Automat = 94.6 82.2-97 complet ed 017 fl .8 ed erythro 06:07 cyte mean corpusc ular v Automat = 33.6 31.8-35 complet ed 017 g/dl .4 ed erythro 06:07 cyte mean corpusc ular h Mean = 31.8 27-31.2 complet corpusc 017 pg ed ular 06:07 hemoglo bin (MCH) determ Lymphoc = 11.1 10-50 complet yte 017 % ed count, 06:07 blood, automat ed Absolut = 1.3 0.7-4.5 complet e 017 K/mm3 ed lymphoc 06:07 yte count Blood = 10.7 14.1-18 complet hemoglo 017 g/dL .0 ed bin 06:07 measure ment (mass/v olum Blood = 31.4 42.0-52 complet hematoc 017 % .0 ed rit 06:07 (volume fractio n) Granulo = 81.5 37.0-80 complet cyte 017 % .0 ed percent 06:07 age Blood = 9.2 1.3-8.0 complet granulo 017 K/mm3 ed cytes 06:07 automat ed count (numb Automat 08-07-2 = 0.2 % 0.1-12. complet ed 017 0 ed blood 06:07 eosinop hils/10 0 leukocy t Automat 08-07-2 = 0.0 0.0-0.4 complet ed 017 K/mm3 ed blood 06:07 eosinop hil count Baso % = 0.3 % 0.1-2.0 complet 017 ed 06:07 Automat 08-07-2 = 0.0 0-0.2 complet ed 017 K/MM3 ed blood 06:07 basophi l count (count/ vo Basic metabolic panel (08-07-2017 06:07) Serum 08-07-2 = 138 136-145 complet sodium 017 mmoL/L ed measure 06:07 ment Serum 2 = 4.1 3.5-5.1 complet potassi 017 mmoL/L ed um 06:07 measure ment Serum = 184 74-106 complet or 017 mg/dL ed plasma 06:07 glucose measure ment (mas Estimat 2 = 45 >60 complet ed 017 ML/MIN ed glomeru 06:07 lar filtrat ion rate (GF Estimat = 57 50-200 complet ion of 017 ML/MIN ed creatin 06:07 ine renal clearan ce Serum 2 = 1.5 0.70-1. complet or 017 mg/dL 30 ed plasma 06:07 creatin ine measure ment ( Carbon = 31 21.0-32 complet dioxide 017 mmoL/L .0 ed 06:07 measure ment Serum 2 = 101 98-107 complet or 017 mmoL/L ed plasma 06:07 chlorid e measure ment (mo Serum 2 = 8.3 8.5-10. complet or 017 mg/dL 1 ed plasma 06:07 calcium measure ment (mas Serum 2 = 28 7-18 complet or 017 mg/dL ed plasma 06:07 urea nitroge n measure men Glucose capillary blood glucometer (08-06-2017 21:39) Glucose = 188 70-110 complet 017 mg/dl ed capilla 21:[address] Glucose capillary blood glucometer (08-06-2017 17:13) Glucose 08-06-2 = 179 70-110 complet 017 mg/dl ed capilla 17:[address] Glucose capillary blood glucometer (08-06-2017 11:45) Glucose 08-06-2 = 116 70-110 complet 017 mg/dl ed capilla 11:[address] Glucose capillary blood glucometer (08-06-2017 06:36) Glucose 08-06-2 = 92 70-110 complet 017 mg/dl ed capilla 06:[address] Urine culture (08-06-2017 01:15) Urine [id number] complet culture 017 8 ed 01:15 Klebsie lla pneumon iae SCT KPN KLEBSIE LLA PNEUMON IAE L Urinalysis with microscopy (08-06-2017 01:15) Urine 10 - 20 O complet leukocy 017 ed juan jose 01:15 wbc/hpf count (number /volume ) Urine 0.2 0.2 NEG complet urobili 017 L ed nogen 01:15 E.U./dL detecti on by test str Urine = 1.020 1.005-1 complet specifi 017 .030 ed c 01:15 gravity measure ment Erythro 10-20 0 complet cytes 017 10-20 L [...] color 017 YELLOW ed 01:15 L Urine 10-22-2 2+ 2+ L NEG complet blood 017 ed detecti 01:15 on Urine 10-22-2 NEGATIV NEG complet total 017 E ed bilirub 01:15 NEGATIV in E L detecti on by test Bacteri 10-22-2 4+ 4+ L O complet a 017 ed detecti 01:15 on in urine sedimen t by Urine 10-22-2 CLOUDY CLEAR complet appeara 017 CLOUDY ed nce 01:15 L determi nation Urinalysis dipstick W Reflex Microscopic panel in Urine (08-06-2017 01:15) Bacteri 10-22-2 4+ O complet a 017 ed [Presen 01:15 ce] in Urine sedimen t by Light microsc opy Erythro 10--2 10-20 0 complet cytes 017 ed [Presen 01:15 ce] in Urine sedimen t by Light microsc opy Leukocy -22-2 10-20 O complet juan jose 017 wbc/hpf ed [#/volu 01:15 me] in Urine Urinalysis dipstick W Reflex Microscopic panel in Urine (08-06-2017 01:15) Appeara 10-22-2 CLOUDY CLEAR complet nce of 017 ed Urine 01:15 Bilirub 22-2 NEGATIV NEG complet in 017 E ed [Presen 01:15 ce] in Urine by Test strip Erythro 10-22-2 2+ NEG Abnorma complet cytes 017 l ed [Presen 01:15 ce] in Urine Color 10-22-2 YELLOW YELLOW complet of 017 ed Urine 01:15 Ketones -22-2 NEGATIV NEG complet 017 E ed [Presen 01:15 ce] in Urine by Automat ed test strip Mucus 10-22-2 NEGATIV NEG complet [Presen 017 E ed ce] in 01:15 Urine sedimen t by Light microsc opy Nitrite 10-22-2 POSITIV NEG Abnorma complet 017 E l ed [Presen 01:15 ce] in Urine by Test strip Urobili 10-22-2 0.2 NEG complet nogen 017 ed [Presen 01:15 ce] in Urine by Test strip Differential panel, method unspecified - (08-06-2017 00:30) LYMPH 10-22-2 2 % 10-50 complet 017 ed 00:30 Toxic 10-22-2 1+ 1+ L complet leukocy 017 ed [...] juan jose 017 ed detecti 00:30 on Automat = 15 % 0-8 complet ed 017 ed blood 00:30 band neutrop hil percent a Blood 1+ 1+ L complet anisocy 017 ed tosis 00:30 detecti on Whole blood INR measurement (08-06-2017 00:30) Whole = 2.41 0.9-1.1 complet blood 017 ed INR 00:30 measure ment Prothro = 26.3 9.4-11. complet mbin 017 SECONDS 8 ed time 00:30 (PT) in platele t poor p CBC w auto diff (08-06-2017 00:30) Lymphoc = 5.8 % 10-50 complet yte 017 ed count, 00:30 blood, automat ed Absolut = 1.0 0.7-4.5 complet e 017 K/mm3 ed lymphoc 00:30 yte count Blood = 11.8 14.1-18 complet hemoglo 017 g/dL .0 ed bin 00:30 measure ment (mass/v olum Blood = 35.7 42.0-52 complet hematoc 017 % .0 ed rit 00:30 (volume fractio n) Granulo = 88.5 37.0-80 complet cyte 017 % .0 ed percent 00:30 age Blood = 14.4 1.3-8.0 complet granulo 017 K/mm3 ed cytes 00:30 automat ed count (numb Automat 10-22-2 = 0.1 % 0.1-12. complet ed 017 0 ed blood 00:30 eosinop hils/10 0 leukocy t Automat 2 = 0.0 0.0-0.4 complet ed 017 K/mm3 ed blood 00:30 eosinop hil count Baso % 08-06-2 = 0.2 % 0.1-2.0 complet 017 ed 00:30 Automat 08-06-2 = 0.0 0-0.2 complet ed 017 K/MM3 ed blood 00:30 basophi l count (count/ vo Blood = 16.3 4.8-10. complet leukocy 017 K/MM3 8 ed juan jose 00:30 count (number /volume ) Automat = 16.1 11.5-17 complet ed 017 % .5 ed erythro 00:30 cyte distrib ution width Red = 3.84 4.6-6.2 complet blood 017 M/mm3 ed cell 00:30 count Blood = 113 142-424 complet platele 017 K/mm3 ed t count 00:30 Automat = 8.9 7.4-10. complet ed 017 fl 4 ed blood 00:30 platele t mean volume javan Harney % = 5.3 % 1.7-9.3 complet 017 ed 00:30 Absolut = 0.9 0.1-1.0 complet e 017 K/mm3 ed monocyt 00:30 e count Automat = 92.8 82.2-97 complet ed 017 fl .8 ed erythro 00:30 cyte mean corpusc ular v Automat = 33.1 31.8-35 complet ed 017 g/dl .4 ed erythro 00:30 cyte mean corpusc ular h Mean = 30.7 27-31.2 complet corpusc 017 pg ed ular 00:30 hemoglo bin (MCH) determ Digoxin level (08-06-2017 00:30) Digoxin 2 = 0.77 1.15-2. complet level 017 ng/mL 56 ed 00:30 Comprehensive metabolic panel (08-06-2017 00:30) Protein = 7.3 6.4-8.2 complet total 017 gm/dL ed ser/coleen 00:30 s ALT = 43 12-78 complet (SGPT) 017 U/L ed ser/coleen 00:30 s Serum = 38 15-37 complet or 017 U/L [...] plasma 00:30 creatin e kinase MB (CK-M Blood lactic acid measurement (moles/vol (08-06-2017 00:30) [...] complet e 017 mmol/L ed Ur-sCnc 09:04 Hgb A1c MFr Bld (07-17-2017 02:25) [...] Bacteria Fld Aerobe Cult (07-15-2017 06:09) Bacteri [id number] complet a XXX 017 06 No ed [...] Bacteria XXX Anaerobe+Aerobe Cult (07-14-2017 22:06) Bacteri [id number] complet a XXX 017 06 No ed Anaerob 22:06 growth e+Aerob (qualif e Cult ier value) SCT NGB6 NO GROWTH DAY 5. L Bacteria XXX Anaerobe+Aerobe Cult (07-14-2017 21:59) Bacteri [id number] complet a XXX 017 06 No ed [...] JULIANE Chen (ER) 3 10:41 3 12:30 [facility] Naeem Campos
--- OUTSIDE RECORDS SUMMARY | 2017-08-09 13:29 | External Medical Summary Rpt | CCD ---
Author Author , JONAH MCKENZIE Address Unknown Phone [email or web address] Purpose Continuity of Care Document - through 2016
--- OUTSIDE RECORDS SUMMARY | 2017-08-09 13:29 | External Medical Summary Rpt | CCD ---
Author Author , LEYDA MCKENZIE Address Unknown Phone [email or web address] Immunization Name Date Rout CVX Reac Dose Comm Prov Is Faci e tion ent ider Refu lity Give sed n Infl 10-1 Intr 135 0.5 Hist [facility] No [facility] uenz 6-20 amus mL oric ART4 ART4 a, 16 cula al 93 93 High r Info rmat Dose ion - Sour ce Unsp ecif ied
--- OUTSIDE RECORDS SUMMARY | 2017-08-09 13:29 | External Medical Summary Rpt | CCD ---
Author Author , JONAH MCKENZIE Address Unknown Phone [email or web address] Care Team Providers Care Front Desk Representative Name Role Phone Naeem Cummings III, MD, Naeem Chen III, MD Purpose Continuity of Care Document - 10-15-2013 through 2016 Problems Code Diagnosis DOS Provider Status 250.01 250.01 DIAB 10-15-2013 [facility], TYPE Hospital I [JUVENILE TYPE], NOT UNCNTRLD 274.00 274.00 10-15-2013 [facility] 401.9 401.9 10-15-2013 [facility] Allergies, Adverse Reactions, Alerts Type [...] blood 06:07 platele t mean volume javan [place] % = 6.9 % 1.7-9.3 complet 017 [...] glucome ter Urine culture (08-06-2017 01:15) Urine [id number] complet culture 017 8 ed 01:15 Klebsie [...] blood 00:30 platele t mean volume javan [place] % = 5.3 % 1.7-9.3 complet 017 [...] Bacteria Fld Aerobe Cult (07-15-2017 06:09) Bacteri [id number] complet a XXX 017 06 No ed [...] Bacteria XXX Anaerobe+Aerobe Cult (07-14-2017 22:06) Bacteri [id number] complet a XXX 017 06 No ed Anaerob 22:06 growth e+Aerob (qualif e Cult ier value) SCT NGB6 NO GROWTH DAY 5. L Bacteria XXX Anaerobe+Aerobe Cult (07-14-2017 21:59) Bacteri [id number] complet a XXX 017 06 No ed [...] JULIANE Chen (ER) 3 10:41 3 12:30 [facility] Naeem Campos
--- OUTSIDE RECORDS SUMMARY | 2017-08-09 13:29 | External Medical Summary Rpt | CCD ---
Author Author , JONAH MCKENZIE Address Unknown Phone [email or web address] Purpose Continuity of Care Document - through 2016
--- OUTSIDE RECORDS SUMMARY | 2017-08-09 13:29 | External Medical Summary Rpt | CCD ---
Author Author , LEYDA MCKENZIE Address Unknown Phone [email or web address] Immunization Name Date Rout CVX Reac Dose Comm Prov Is Faci e tion ent ider Refu lity Give sed n Infl 10-1 Intr 135 0.5 Hist [facility] No W[facility]M uenz 6-20 amus mL oric ART4 ART4 a, 16 cula al 93 93 High r Info rmat Dose ion - Sour ce Unsp ecif ied
--- OUTSIDE RECORDS SUMMARY | 2017-08-09 13:30 | External Medical Summary Rpt ---
Author Author LOLIELIZABETH Espinoza, [employer] Address Unknown Phone Unavailable Results Glucose [Mass/volume] in Capillary blood by Glucometer Observa Value Referen Units Interpr Notes Date tion ce etation Range Glucose 70 - 110 mg/dl High No Jul 24 [Mass/vol alert informati 2017 8:48 ume] in on in PM Capillary source blood by data Glucomete r Glucose [Mass/volume] in Capillary blood by Glucometer Observa Value Referen Units Interpr Notes Date tion ce etation Range Glucose 70 - 110 mg/dl High No Jul 24 [Mass/vol alert informati 2016 5:01 ume] in on in PM Capillary source blood by data Glucomete r Glucose [Mass/volume] in Capillary blood by Glucometer Observa Value Referen Units Interpr Notes Date tion ce etation Range Glucose 70 - 110 mg/dl High No Jul 24 [Mass/vol alert informati 2016 ume] in on in 11:42 AM Capillary source blood by data Glucomete r INR in Blood by Coagulation assay Observa Value Referen Units Interpr Notes Date tion ce etation Range IS PATIENT ON ANTICOAGULANTS? Y LIST ANTICOAGULANTS: WARFARIN INR in 0.9 - 1.1 No High INDICATIO Jul 24 Blood by informati N 2017 Coagulati on in 10:41 AM on assay source INR data RANGETHER APY FOR DVT, PE, ATRIAL FIB; 2.0 - 3.0PROPHY LAXIS FOR VTETHERAP Y FOR MECHANICA L HEART 2.5 - 3.5VALVE; PREVENTIO N OF SYSTEMICE MBOLISM SECONDARY TO AMI Prothromb 9.4 - SECONDS High No Jul 24 in time 11.8 informati 2017 (PT) in on in 10:41 AM Platelet source poor data plasma by Coagulati on assay Glucose [Mass/volume] in Capillary blood by Glucometer Observa Value Referen Units Interpr Notes Date tion ce etation Range Glucose 70 - 110 mg/dl High No Jul 24 [Mass/vol informati 2017 6:26 ume] in on in AM Capillary source blood by data Glucomete r Glucose [Mass/volume] in Capillary blood by Glucometer Observa Value Referen Units Interpr Notes Date tion ce etation Range Glucose 70 - 110 mg/dl High No Aug 07 [Mass/vol informati 2016 5:01 ume] in on in PM Capillary source blood by data Glucomete r Glucose [Mass/volume] in Capillary blood by Glucometer Observa Value Referen Units Interpr Notes Date ti ce etation Range Glucose 70 - 110 mg/dl High No Aug 07 [Mass/vol informati 2016 ume] in on in 11:39 AM Capillary source blood by data Glucomete r Glucose [Mass/volume] in Capillary blood by Glucometer Observa Value Referen Units Interpr Notes Date ti ce etation Range Glucose 70 - 110 mg/dl High No Aug 07 [Mass/vol informati 2016 6:22 ume] in on in AM Capillary source blood by data Glucomete r CBC W Auto Differential panel in Blood Observa Value Referen Units Interpr Notes Date ti ce etation Range Basophils 0 - 0.2 K/MM3 Normal No Aug 07 informati 2016 6:07 [#/volume on in AM ] in source Blood by data Automated count Basophils 0.1 - 2.0 % Normal No Aug 07 informati 2017 6:07 leukocyte on in AM s in source Blood by data Automated count Eosinophi 0.0 - 0.4 K/mm3 Normal No Aug 07 ls informati 2016 6:07 [#/volume on in AM ] in source Blood by data Automated count Eosinophi 0.1 - % Normal No Aug 07 ls/100 12.0 informati 2016 6:07 leukocyte on in AM s in source Blood by data Automated count Granulocy 1.3 - 8.0 K/mm3 High No Aug 07 juan jose informati 2016 6:07 [#/volume on in AM ] in source Blood by data Automated count Granulocy 37.0 - % High No Aug 07 juan jose/100 80.0 informati 2016 6:07 leukocyte on in AM s in source Blood by data Automated count Hematocri 42.0 - % Low No Aug 07 t [Volume 52.0 informati 2016 6:07 on in AM Fraction] source of Blood data Hemoglobi 14.1 - g/dL Low No Aug 07 n 18.0 informati 2017 6:07 [Mass/vol on in AM ume] in source Blood data Lymphocyt 0.7 - 4.5 K/mm3 Normal No Aug 07 es informati 2017 6:07 [#/volume on in AM ] in source Unspecifi data ed specimen by Automated count Lymphocyt 10 - 50 % Normal No Aug 07 es informati 2016 6:07 [#/volume on in AM ] in source Unspecifi data ed specimen by Automated count Erythrocy 27 - 31.2 pg High No Aug 07 te mean informati 2017 6:07 corpuscul on in AM ar source hemoglobi data n [Entitic mass] Erythrocy 31.8 - g/dl Normal No Aug 07 te mean 35.4 informati 2017 6:07 corpuscul on in AM ar source hemoglobi data n concentra tion [Mass/vol ume] by Automated count Erythrocy 82.2 - fl Normal No Aug 07 te mean 97.8 informati 2017 6:07 corpuscul on in AM ar volume source [Entitic data volume] by Automated count Monocytes 0.1 - 1.0 K/mm3 Normal No Aug 07 informati 2017 6:07 [#/volume on in AM ] in source Blood by data Automated count Monocytes 1.7 - 9.3 % Normal No Aug 07 /100 informati 2017 6:07 leukocyte on in AM s in source Blood by data Automated count Platelet 7.4 - fl Normal No Aug 07 mean 10.4 informati 2017 6:07 volume on in AM [Entitic source volume] data in Blood by Automated count Platelets 142 - 424 K/mm3 Low No Aug 07 informati 2017 6:07 [#/volume on in AM ] in source Blood data Erythrocy 4.6 - 6.2 M/mm3 Low No Aug 07 juan jose informati 2017 6:07 [#/volume on in AM ] in source Amniotic data fluid Erythrocy 11.5 - % Normal No Aug 07 te 17.5 informati 2017 6:07 distribut on in AM ion width source [Entitic data volume] by Automated count Leukocyte 4.8 - K/MM3 High No Aug 07 s 10.8 informati 2016 6:07 [#/volume on in AM ] in source Blood data Basic metabolic panel in Blood Observa Value Referen Units Interpr Notes Date tion ce etation Range Urea 7 - 18 mg/dL High No Aug 07 nitrogen informati 2017 6:07 [Mass/vol on in AM ume] in source Serum or data Plasma Calcium 8.5 - mg/dL Low No Aug 07 [Mass/vol 10.1 informati 2017 6:07 ume] in on in AM Serum or source Plasma data Chloride 98 - 107 mmoL/L Normal No Aug 07 [Moles/vo informati 2016 6:07 lume] in on in AM Serum or source Plasma data Carbon 21.0 - mmoL/L Normal No Aug 07 dioxide, 32.0 informati 2017 6:07 total on in AM [Moles/vo source lume] in data Serum or Plasma Creatinin 0.70 - mg/dL High No Aug 07 e 1.30 informati 2017 6:07 [Mass/vol on in AM ume] in source Serum or data Plasma Creatinin 50 - 200 ML/MIN No No Aug 07 e renal informati informati 2017 6:07 clearance on in on in AM source source predicted data data by Cockcroft -Gault formula Estimated >60 ML/MIN No REFERENCE Aug 07 informati RANGE: 2017 6:07 glomerula on in >60 AM r source ML/MIN/1. filtratio data 73 SQUARE n rate METERSIf (GF this patient is -A merican, then multiply theresult by 1.210. Glucose 74 - 106 mg/dL High No Aug 07 [Mass/vol informati 2016 6:07 ume] in on in AM Serum or source Plasma data Potassium 3.5 - 5.1 mmoL/L Normal No Aug 07 informati 2016 6:07 [Moles/vo on in AM lume] in source Serum or data Plasma Sodium 136 - 145 mmoL/L Normal No Aug 07 [Moles/vo informati 2016 6:07 lume] in on in AM Serum or source Plasma data Glucose [Mass/volume] in Capillary blood by Glucometer Observa Value Referen Units Interpr Notes Date tion ce etation Range Glucose 70 - 110 mg/dl High No Aug 06 [Mass/vol informati 2016 9:39 ume] in on in PM Capillary source blood by data Glucomete r Glucose [Mass/volume] in Capillary blood by Glucometer Observa Value Referen Units Interpr Notes Date tion ce etation Range Glucose 70 - 110 mg/dl High No Aug 06 [Mass/vol informati 2017 5:13 ume] in on in PM Capillary source blood by data Glucomete r Glucose [Mass/volume] in Capillary blood by Glucometer Observa Value Referen Units Interpr Notes Date tion ce etation Range Glucose 70 - 110 mg/dl High No Aug 06 [Mass/vol informati 2016 ume] in on in 11:45 AM Capillary source blood by data Glucomete r Glucose [Mass/volume] in Capillary blood by Glucometer Observa Value Referen Units Interpr Notes Date tion ce etation Range Glucose 70 - 110 mg/dl Normal No Aug 06 [Mass/vol informati 2016 6:36 ume] in on in AM Capillary source blood by data Glucomete r Urinalysis dipstick W Reflex Microscopic panel in Urine Observa Value Referen Units Interpr Notes Date ti ce etation Range Appeara CLOUDY CLEAR No [...] mg/dL High No Aug 06 [Mass/vol informati 2017 1:15 ume] in on in AM Urine [...] ng/mL Low No Aug 06 [Mass/vol 2.56 informati 2016 ume] in on in 12:30 AM Serum or source Plasma data CBC W Auto Differential panel in Blood Observa Value Referen Units Interpr Notes Date tion ce etation Range Basophils 0 - 0.2 K/MM3 Normal No Aug 06 inform2016 [#/volume on in 12:30 AM ] in source Blood by data Automated count Basophils 0.1 - 2.0 % Normal No Aug 06 /100 inform2016 leukocyte on in 12:30 AM s in source Blood by data Automated count Eosinophi 0.0 - 0.4 K/mm3 Normal No Aug 06 ls ati 2016 [#/volume on in 12:30 AM ] in source Blood by data Automated count Eosinophi 0.1 - % Normal No Aug 06 ls/100 12.0 2016 leukocyte on in 12:30 AM s in source Blood by data Automated count Granulocy 1.3 - 8.0 K/mm3 High No Aug 06 juan jose 2016 [#/volume on in 12:30 AM ] in source Blood by data Automated count Granulocy 37.0 - % High No Aug 06 juan jose/100 80.0 2016 leukocyte on in 12:30 AM s in source Blood by data Automated count Hematocri 42.0 - % Low No Aug 06 t [Volume 52.0 ati 2016 on in 12:30 AM Fraction] source [...] 50 % Low No Aug 06 es 2016 [#/volume on in 12:30 AM ] in source Unspecifi data ed specimen by Automated count Erythrocy 27 - 31.2 pg Normal No Aug 06 te mean 2016 corpuscul on in 12:30 AM ar source hemoglobi data n [Entitic mass] Erythrocy 31.8 - g/dl Normal No Aug 06 te mean 35.4 inform2016 corpuscul on in 12:30 AM ar source hemoglobi data n concentra tion [Mass/vol ume] by Automated count Erythrocy 82.2 - fl Normal No Aug 06 te mean 97.8 informati 2016 corpuscul on in 12:30 AM ar volume source [Entitic data volume] by Automated count Monocytes 0.1 - 1.0 K/mm3 Normal No Aug 06 informati 2016 [#/volume on in 12:30 AM ] in source Blood by data Automated count Monocytes 1.7 - 9.3 % Normal No Aug 06 /100 informati 2016 leukocyte on in 12:30 AM s in source Blood by data Automated count Platelet 7.4 - fl Normal No Aug 06 mean 10.4 inform2016 volume on in 12:30 AM [Entitic source volume] data in Blood by Automated count Platelets 142 - 424 K/mm3 Low No Aug 06 informati 2016 [#/volume on in 12:30 AM ] in source Blood data Erythrocy 4.6 - 6.2 M/mm3 Low No Aug 06 juan jose informati 2016 [#/volume on in 12:30 AM ] in source Amniotic data fluid Erythrocy 11.5 - % Normal No Aug 06 te 17.5 2016 distribut on in 12:30 AM ion width source [Entitic data volume] by Automated count Leukocyte 4.8 - K/MM3 High No Aug 06 s 10.8 informati 2016 [#/volume on in 12:30 AM [...] - 50 % Low No Aug 06 informa 2016 tion in 12:30 source AM data Macrocy 1+ No No No No Aug 06 juan jose informa informa informa informa 2017 [Presen tion in tion in tion in tion in 12:30 ce] in source source source source AM Blood data data data data Monocytes 2 - 9 % Low No Aug 06 / informati 2016 leukocyte on in 12:30 AM [...] mg/dL High No Sep 29 [Mass/vol informati 2017 4:35 ume] in on in PM Serum or source Plasma data Potassium 3.5 - 5.1 mmoL/L Normal No Sep 29 informati 2017 4:35 [Moles/vo on in PM lume] in source Serum or data Plasma Sodium 136 - 145 mmoL/L Normal No Sep 29 [Moles/vo informati 2017 4:35 lume] in on in PM Serum or source Plasma data Aspartate 15 - 37 U/L High No Sep 29 informati 2017 4:35 aminotran on in PM sferase source [...] INDICATIO Sep 29 Blood by informati N 2017 4:35 Coagulati on in PM on assay source INR data RANGETHER APY FOR DVT, PE, ATRIAL FIB; 2.0 - 3.0PROPHY LAXIS FOR VTETHERAP Y FOR MECHANICA L HEART 2.5 - 3.5VALVE; PREVENTIO N OF SYSTEMICE MBOLISM SECONDARY TO AMI Prothromb 9.4 - SECONDS High No Sep 29 in time 11.8 informati 2017 4:35 (PT) in on in PM Platelet source poor data plasma by Coagulati on assay CBC W Auto Differential panel in Blood Observa Value Referen Units Interpr Notes Date tion ce etation Range Basophils 0 - 0.2 K/MM3 Normal No Sep 29 informati 2016 4:35 [...] K/mm3 Normal No Sep 29 es informati 2017 [...] 1.0 K/mm3 Normal No Sep 29 informati 2017 4:35 [#/volume on in PM ] in source Blood by data Automated count Monocytes 1.7 - 9.3 % Normal No Jun 29 /100 informati 2016 4:35 leukocyte on in PM s in source Blood by data Automated count Platelet 7.4 - fl Normal No Jun 29 mean 10.4 informati 2016 4:35 volume on in PM [Entitic source volume] data in Blood by Automated count Platelets 142 - 424 K/mm3 Normal No Jul 14 inform2016 4:35 [#/volume on in PM ] [...] count Leukocyte 4.8 - K/MM3 Normal No Jun 29 s 10.8 informati 2016 4:35 [#/volume [...] ML/MIN No REFERENCE Apr 11 informati RANGE: 2016 4:17 glomerula on in >60 PM r [...] % Normal No Apr 11 /100 informati 2016 4:17 leukocyte on in PM [...] High No Apr 11 te mean informati 2017 4:17 corpuscul on in PM ar source hemoglobi data n [Entitic mass] Erythrocy 31.8 - g/dl Normal Apr 11 te mean 35.4 informati 2017 4:17 corpuscul on in PM ar source hemoglobi data n concentra tion [Mass/vol ume] by Automated count Erythrocy 82.2 - fl Normal No Apr 11 te mean 97.8 informati 2017 4:17 corpuscul on in PM ar volume source [Entitic data volume] by Automated count Monocytes 0.1 - 1.0 K/mm3 Normal No Apr 11 informati 2017 4:17 [#/volume on in PM ] in source Blood by data Automated count Monocytes 1.7 - 9.3 % Normal No Apr 11 /100 informati 2017 4:17 leukocyte on in PM s in source Blood by data Automated count Platelet 7.4 - fl Normal Apr 11 mean 10.4 informati 2017 4:17 volume on in PM [Entitic source volume] data in Blood by Automated count Platelets 142 - 424 K/mm3 Low No Apr 11 informati 2017 4:17 [#/volume on in PM ] in source Blood data Erythrocy 4.6 - 6.2 M/mm3 Low No Apr 11 juan jose informati 2017 4:17 [#/volume on in PM ] in source Amniotic data fluid Erythrocy 11.5 - % Normal No Apr 11 te 17.5 informati 2017 4:17 distribut on in PM ion width [...] No Apr 11 in time 11.8 informati 2017 4:17 (PT) in on in PM Platelet source poor data plasma by Coagulati on assay
--- OUTSIDE RECORDS SUMMARY | 2017-08-09 13:30 | External Medical Summary Rpt ---
[...] - 8.0 K/mm3 Normal No Sep 29 juanj ose informati 2017 4:35 [#/volume on in PM [...]
--- NOTE | 2017-08-09 13:32 | HISTORY AND PHYSICAL REPORT ---
Demographics: Admit date: 08/09/17 Chief complaint: Swing bed admission PRIMARY DIAGNOSIS: klebsiella UTI/weakness Allergies: Coded Allergies: No Known Allergies (08/06/17) History of present illness: History of present illness: History of present illness to acute care 82 year old male with histlroy of mild dementia and diabetes who presented to the ED with complaint of confusion and difficulty urinating for about 24 hours. He reoprts to me that he has had increasing difficulty over the past week and history is notable for recently hospital admission during which time he had a urinary catheter. In the ED he was found to be febrile, with elevated WBC and abnormal UA and was admitted for management. Hospital Course in acute care Patient was admitted hospital, broad-spectrum antibiotic therapy was initiated, patient was found to have low sepsis risk, and blood cultures were negative. Patient was found to have Klebsiella in his urine, fortunately sensitive to commonly used IV antibiotics and he was transitioned to ceftriaxone therapy intravenously. Patient improved but continued be very weak. He was evaluated by physical therapy and felt that he would benefit from twice a day intense physical therapy for the next several days. He'll be transferred to swing bed today for ongoing physical therapy, IV antibiotics for the next 7 days and close observation. He'll continue to maintain his DNR status. Please note mental status is good, rehab potential is good and prognosis is good. Discharge diagnoses from acute care Problem List 1. UTI (urinary tract infection) 2. IDDM (insulin dependent diabetes mellitus) 3. Vomiting 4. Fever 5. Urinary retention Past medical history: Family HX Diabetes Yes CAD No Hypertension Yes Hyperlipidemia No Cancer No TB No Immunization HX DT/Tetanus NOT SURE Flu LAST YEAR Pneumonia 1-4 YRS General CAD? Yes Angina: No [place]: Yes Hypertension? Yes Hyperlipidemia? Yes CHF? No DVT? Yes PE? Yes COPD? No Asthma? No Anemia? No GERD? No Gastric ulcers? No GI Bleed? No Hernia? No Thyroid Problems? No Hypothyroidism? No CVA? No Seizures? No Diabetes? Yes Insulin Dependent: No Insulin Pump: No Home FSBS? Yes Renal Insuffiency? No UTI? Yes Stones? Yes BPH? No GB Disease: No Nephritic Syndrome? No Asplenia? No Hepatitis? No Sickle Cell Disease? No Arthritis? No Migraines? No Cataracts? Yes Glaucoma? No MRSA? No HIV? No TB? No Anxiety? No Depression? No Cancer? No More? No Past Surgical HX Previous Surgery?Y R KNEE VASECTOMY KIDNEY STONE REMOVAL Current home meds: Reported Medications Allopurinol 100 MG PO DAILY ASPIRIN (Aspirin 325MG) 325 MG PO DAILY Atorvastatin Calcium (Atorvastatin) 40 MG PO DAILY Carvedilol (Carvedilol 25MG) 25 MG PO BID Colchicine (Colcrys 0.6MG) 0.6 MG PO DAILY DIGOXIN (Digox) 0.125 MG PO DAILY DOCUSATE SODIUM (Docusate Sodium) 100 MG PO BID Furosemide (Furosemide 40MG) 40 MG PO BID Gabapentin (Gabapentin 300MG) 300 MG PO TID Insulin Glargine (Lantus Insulin Vial) 50 UNITS SC BID INSULIN LISPRO (Humalog) 30 UNITS SC TID ISOSORBIDE MONONITRATE (Isosorbide Mononitrate ER) 120 MG PO DAILY Oxycodone 5MG/[id number] (Oxycodone-Acetaminophen 5-325) 1 TAB PO Q4HP PRN PAIN Warfarin Sodium (Warfarin 4MG) 6 MG PO DAILY Social Hx: Smoking HX Packs/day 1 1/2 - 2 PACKS Alcohol Alcohol: No Hx of Drug Use Drug Use? No Patien't marital status is Patient's support system is fair Review of systems: Constitutional malaise, weakness. Respiratory No: no symptoms reported. Cardiovascular No no symptoms reported Gastrointestinal/Abdominal No no symptoms reported Genitourinary see HPI. Musculoskeletal No: no symptoms reported. Neurological No: see HPI. Exam: Exam General appearance: normal appearance, alert, awake Eyes: normal exam, anicteric Neck: normal inspection, non-tender, no carotid bruit, no JVD Cardiovascular: normal exam Respiratory: normal exam, clear to auscultation ABD: normal exam, non-distended, normal bowel sounds Genitourinary: normal voiding & quantity Musculoskeletal: normal exam Skin: normal exam, intact, normal color Neuro: normal exam, alert, no deficit Plan: Problem List 1. UTI (urinary tract infection) 2. IDDM (insulin dependent diabetes mellitus) Plan: Admit to swing bed, see plan as noted above. at 1332
[2017-08-09 14:55] VITALS: BP 159/78
[2017-08-09 14:56] VITALS: BP 159/78
--- NOTE | 2017-08-09 15:47 | PHARMACY CLINIC NOTE ---
Patient Demographics Patient Demographics Admission date: 08/09/17 Date: 08/09/17 Time: 1546 Allergies Coded Allergies: No Known Allergies (08/06/17) HEIGHT- FT: 6 IN: 4.00 K.312 VTE General Information Disclaimer The following section includes nursing documentation that has been pulled in for pharmacy review. Patient's VTE score: 2 Patient's VTE Risk: VERY LOW RISK Clinical trial participant? No VTE prophylaxis NQF [id number] VTE prophylaxis ordered? Yes Type of prophylaxis/treatment: MICAELA (COUMADIN ALSO ORDERED) at 8342
[2017-08-09 19:32] VITALS: BP 164/82
[2017-08-10 06:30] LABS: LYMPH % 17.4 % (10-50)
[2017-08-10 07:33] VITALS: BP 117/72
[2017-08-10 09:00] VITALS: BP 117/72
[2017-08-10 19:54] VITALS: BP 161/81
--- NOTE | 2017-08-11 07:21 | ACUTE CARE PROGRESS NOTE (QUA) ---
Progress Notes Subjective Date 08/11/17 Time 0720 Note Patient is alert, pleasant. Complains of RIGHT hand pain and swelling-of note has a history of gout-no trauma. Also complains of some urinary frequency. Lungs are clear, heart rate regular, eating well. RIGHT hand is swollen in the MCP joints with heat consistent with gouty flare. Objective Findings Last VS-Temp:97.8 B/P:161/81 Pulse:68 Resp:22 SaO2:97 ROOM AIR Last weight lbs:234 oz:6 K.312 Method:Bed Scales Assessment/Plan Problem List 1. UTI (urinary tract infection) 2. IDDM (insulin dependent diabetes mellitus) 3. Exacerbation of gout Patient condition Stable Plan: continue current care, check and x-ray, steroids for gout. Flomax for some urinary retention issues. Care management evaluation for long-term care transfer next week for ongoing weakness. This inpt stay is expected to cross 2 MNs from start of care Yes at 0721
[2017-08-11 08:00] VITALS: BP 175/81
--- NOTE | 2017-08-11 12:30 | RADIOLOGY REPORT PS360 ---
HAND-RT 3 VIEWS HISTORY: pain/swelling ORDERING PHYSICIAN: Rod Fernando MD PATIENT AGE: 82 years COMPARISON: None FINDINGS: No acute fracture or dislocation. There is artifact from the patient's ring overlying the proximal phalanx of the fourth pain and her which could obscure underlying pathology. Osteoarthritic changes are present involving the first metacarpal carpal joint. There is several small lucencies involving the distal aspect of the proximal phalanx and proximal aspect of the middle phalanx of the third finger as well the distal aspect of the second and third metacarpals. No focal soft tissue swelling apparent. No soft tissue calcification. No joint space narrowing or osteophyte formation of the fingers IMPRESSION: 1. Several small lucencies of the third finger and second and third metacarpals. These could be related to punched out lesions of gout. Please correlate with patient's laboratory values. No focal soft tissue swelling or gouty tophi apparent. 2. Osteoarthritic changes of the first metacarpal carpal joint
[2017-08-11 19:37] VITALS: BP 164/88
[2017-08-12 08:20] VITALS: BP 144/75
[2017-08-12 08:46] VITALS: BP 144/75
[2017-08-12 16:00] VITALS: BP 126/63
[2017-08-12 20:06] VITALS: BP 121/75
--- NOTE | 2017-08-13 08:08 | ACUTE CARE PROGRESS NOTE (QUA) ---
Progress Notes Subjective Date 08/13/17 Time 0808 Note Patient states that he feels better from an energy level perspective and appetite perspective and UTI perspective, however his gouty arthritis pain of shoulders and hands continues to bother him although it is better after colchicine treatment yesterday. RIGHT hand remains swollen but is improved. Lungs are clear, heart rate regular. Objective Findings Last VS-Temp:97.5 B/P:121/75 Pulse:67 Resp:20 SaO2:95 ROOM AIR Last weight lbs:234 oz:6 K.312 Method:Bed Scales Assessment/Plan Problem List 1. UTI (urinary tract infection) 2. IDDM (insulin dependent diabetes mellitus) 3. Exacerbation of gout Patient condition Improving Plan: continue current care, colchicine and indomethacin today. Watch creatinine carefully tomorrow. Continue PT. Continue plans for long-term care transfer. This inpt stay is expected to cross 2 MNs from start of care Yes at 0808
[2017-08-13 08:13] VITALS: BP 132/69
[2017-08-13 16:09] VITALS: BP 119/60
[2017-08-13 20:12] VITALS: BP 123/63
[2017-08-14 07:27] VITALS: BP 101/56
[2017-08-14 08:04] LABS: HEMOGLOBIN 9.9 g/dL (14.1-18.0); LYMPH # 0.7 K/mm3 (0.7-4.5); LYMPH % 15.1 % (10-50)
--- NOTE | 2017-08-14 08:33 | DISCHARGE SUMMARY STANDARD ---
See Addendum Demographics Admit date: 08/09/17 Discharge date: 08/14/17 History of present illness History of present illness History of present illness to acute care 82 year old male with histlroy of mild dementia and diabetes who presented to the ED with complaint of confusion and difficulty urinating for about 24 hours. He reoprts to me that he has had increasing difficulty over the past week and history is notable for recently hospital admission during which time he had a urinary catheter. In the ED he was found to be febrile, with elevated WBC and abnormal UA and was admitted for management. Hospital Course in acute care Patient was admitted hospital, broad-spectrum antibiotic therapy was initiated, patient was found to have low sepsis risk, and blood cultures were negative. Patient was found to have Klebsiella in his urine, fortunately sensitive to commonly used IV antibiotics and he was transitioned to ceftriaxone therapy intravenously. Patient improved but continued be very weak. He was evaluated by physical therapy and felt that he would benefit from twice a day intense physical therapy for the next several days. He'll be transferred to swing bed today for ongoing physical therapy, IV antibiotics for the next 7 days and close observation. He'll continue to maintain his DNR status. Please note mental status is good, rehab potential is good and prognosis is good. Discharge diagnoses from acute care Problem List 1. UTI (urinary tract infection) 2. IDDM (insulin dependent diabetes mellitus) 3. Vomiting 4. Fever 5. Urinary retention Hospital Course Hospital Course: Swing bed course: Patient was transferred to swing bed, continued intravenous ceftriaxone for his urinary tract infection. His gout continue to be a problem and he was transition from allopurinol therapy over to colchicine therapy initially 5 times in the first 24 hours and then twice a day dosing. This helped him significantly with overall pain except in his RIGHT hand. 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 This handed improved but continues to be a problem for him. The patient tells me he has a rheumatology appointment early next month for evaluation and this certainly is a reasonable idea. Patient improved vis--vis functioning and fever curve, and this morning was doing well. Able to eat 100 percent of his meals. Able to get up and use the restroom under his own power and with no pain in his joints except for the RIGHT hand. Exam reveals clear lungs bilaterally, heart rate regular abdomen soft, slight edema at baseline, wearing MICAELA hose. Significant swelling in the RIGHT wrist and hand but improved over a couple of days ago. Plan will be to place a PICC line today for 8 more days of intravenous ceftriaxone. He then will be transferred to the [facility] for ongoing intravenous ceftriaxone, 1 g daily for the next 8 days. He will also continue his colchicine other medications noted on the medication reconciliation discharge form. He'll follow-up with his rheumatology appointment as scheduled and he'll be seen at the shelter by his regular physician, Dr. Uriarte. Need ongoing PT/OT evaluation and glucose monitoring at the nursing facility. Discharge diagnoses Problem List 1. UTI (urinary tract infection) 2. IDDM (insulin dependent diabetes mellitus) 3. Exacerbation of gout Medications Medications: Discharge meds are as noted. Follow up Follow up in office in: 4 DAYS with: Hossein Uriarte MD at 0833
[2017-08-14] MEDS ORDERED: COLCRYS0.6 M1 PO (08:39)
[2017-08-14] MEDS ORDERED: [UNRECOGNIZED DRUG - OTHER] IV (08:40)
[2017-08-14] MEDS ORDERED: GABAPENTIN300 MG PO (08:40)
[2017-08-14] MEDS ORDERED: PERCOCET 5/3251 EACH PO (08:40)
[2017-08-14 09:18] VITALS: BP 101/56
--- NOTE | 2017-08-14 12:01 | RADIOLOGY REPORT PS360 ---
CHEST PORTABLE-PICC PLACEMENT HISTORY: PICC LINE INSERTION Patient Age: 82 years: Male Ordering Physician: Rod Fernando MD TECHNIQUE: AP portable upright chest COMPARISON :Previous portable chest 08/06/2017. FINDINGS The SVC line is satisfactory position. It enters from the left arm transversing left subclavian vein with tip at SVC. Today's Higher technique used for line placement demonstrates this small PICC line. . Lungs otherwise appear clear with no active disease. Heart, rena and mediastinal structures satisfactory; again including prominent calcified aortic knob -stable IMPRESSION: PICC line satisfactory position PICC line enters from left with tip at SVC Stable chest with No active disease.
== END 2017-08-14 13:40 | DRG 690 ==
LOC: 2ND 13:23
PROVIDERS: Internal Medicine Adolescent Medicine
DX: N30.00 Acute cystitis without hematuria (principal); I48.0 Paroxysmal atrial fibrillation; E11.9 Type 2 diabetes mellitus without complications; I10 Essential (primary) hypertension; R33.9 Retention of urine, unspecified; Z79.4 Long term (current) use of insulin; Z79.01 Long term (current) use of anticoagulants

== ENCOUNTER → 2017-09-29 | Outpatient (CLI) | payer MEDICARE, MEDICAID ==
[~2017-09-29] MED LIST changes: +[UNRECOGNIZED DRUG - OTHER] IV
== END ==
LOC: LAB 09:23
DX: Z79.01 Long term (current) use of anticoagulants (principal); Z51.81 Encounter for therapeutic drug level monitoring